=== PATIENT | female | born 1950 | race Caucasian/White ===

== ENCOUNTER 2022-08-22 11:03 | Inpatient (IN) ==
[2022-08-22 16:11] LABS: BASOPHILS % (AUTO) 0.7 % (0.2-1.0); EOSINOPHILS # (AUTO) 0.1 x10^3/uL (0.0-0.2); EOSINOPHILS % (AUTO) 0.9 % (0.9-2.9); HEMATOCRIT 33.3 % (36.0-47.0); HEMOGLOBIN 11.5 g/dL (12.0-16.0); LYMPHOCYTES # (AUTO) 1.2 X10^3/uL (1.3-2.9); LYMPHOCYTES % (AUTO) 16.2 % (21.0-51.0); MEAN CORPUSCULAR HEMOGLOBIN 40.5 pg (27.0-34.0); MEAN CORPUSCULAR HGB CONC 34.6 g/dL (33.0-35.0); MEAN CORPUSCULAR VOLUME 117.1 fL (80.0-100.0); MEAN PLATELET VOLUME 7.2 fL (7.4-11.0); MONOCYTES # (AUTO) 0.7 x10^3/uL (0.3-0.8); MONOCYTES % (AUTO) 10.3 % (0.0-13.0); NEUTROPHILS # (AUTO) 5.1 x10^3/uL (2.2-4.8); NEUTROPHILS % (AUTO) 71.9 % (42.0-75.0); PLATELET COUNT 343 X10^3/uL (150.0-450.0); RED BLOOD COUNT 2.84 X10^6/uL (3.5-5.4); RED CELL DISTRIBUTION WIDTH 16.3 % (11.6-16.5); WHITE BLOOD COUNT 7.1 X10^3/uL (3.6-10.0)
[2022-08-22] MEDS: LR 1,000 ML IV 1,000 ML IV SCH (16:16)
[2022-08-22 16:20] LABS: INR 0.92 (0.8-1.3)
[2022-08-22 16:24] LABS: ALANINE AMINOTRANSFERASE 24 Units/L (12-78); ALBUMIN 2.6 g/dL (3.4-5.0); ALKALINE PHOSPHATASE 151 Units/L (46-116); ASPARTATE AMINO TRANSFERASE 42 Units/L (15-37); BLOOD UREA NITROGEN 7 mg/dL (7-18); CARBON DIOXIDE 26.5 mmol/L (21-32); CHLORIDE 94 mmol/L (98-107); COR CA(FOR HYPOALB) 9.1 mg/dL (8.5-10.1); GLUCOSE 100 mg/dL (65-99); SODIUM 134 mmol/L (136-145); TOTAL PROTEIN 6.6 g/dL (6.4-8.2); eGFR NON BLACK RACES > 60 (>60)
[2022-08-22] MEDS ORDERED: HEPARIN SODIUM INJ 5000 UNITS IVP ONE ×2 (16:25→23:45)
[2022-08-22] MEDS ORDERED: POTASSIUM CHL 40 MEQ/NS 0.45% 500 ML IV PRN (16:29)
[2022-08-22] MEDS ORDERED: MICRO K EXTEN CAP 10 MEQ PO PRN (16:29)
[2022-08-22] MEDS ORDERED: KLOR-CON PO PRN (16:29)
[2022-08-22] MEDS ORDERED: K-DUR TAB 20 MEQ PO PRN (16:29)
[2022-08-22] MEDS ORDERED: K-RIDER 10 MEQ/NS 100 ML 10 MEQ/100 ML BAG IV PRN (16:29)
[2022-08-22] MEDS ORDERED: POTASSIUM CHLORIDE LIQ PO PRN (16:29)
[2022-08-22] MEDS ORDERED: POTASSIUM CHL 60 MEQ/NS 0.45% 500 ML IV PRN (16:29)
[2022-08-22] MEDS: HEPARIN SODIUM IN D5W 25,000 UNITS/500 ML BAG IV PRN (16:51)
[2022-08-22 16:57] LABS: PLATELET MORPHOLOGY COMMENT NORMAL (NORMAL)
[2022-08-22 16:58] LABS: STOMATOCYTES SLIGHT
[2022-08-22] MEDS: DILAUDID INJ IVP PRN (16:58)
[2022-08-22 17:33] VITALS: BMI 15.9
[2022-08-22] MEDS ORDERED: ZOFRAN INJ 4 MG VIAL ONE (17:45)
[2022-08-22] MEDS: ZOFRAN INJ 4 MG VIAL IVP PRN (17:55)
[2022-08-22] MEDS: MAGNESIUM SULFATE 1 GRAM/100 mL PREMIX 1 G/100 ML BAG IV PRN ×5 (18:19→23:32)
--- NOTE | 2022-08-22 19:19 | CT ---
HISTORYAbdominal pain with possible AORTOILIAC OCCLUSION, severe vascular diseaseSTUDYCTA AORTA WITH RUNOFFCOMPARISONNoneTECHNIQUEMultiple axial images of the abdomen and pelvis were obtained from the mesenteric vasculature to the plantar surface of the feet both prior to and after the administration of IV contrast timed for peak arterial enhancement. 3D reconstructions were performed and reviewed utilizing maximum intensity projection imaging. Dose reduction techniques including Automated Exposure Control (AEC) and adjustment of mA and kV were utilized.FINDINGSPrecontrast images demonstrate mild hypoventilatory changes in the lung bases. Diffuse low density throughout the liver consistent with advanced fatty infiltration. The aorta and branch vessels demonstrate extensive calcified atherosclerotic plaque. There is severe luminal narrowing of the infrarenal aorta with calcified plaque.Post-contrast images demonstrate minimal passage of contrast through this nearly occlusive plaque in the infrarenal aorta.Atrophy of the pancreas. Food material noted in the stomach. Normal spleen contours.Some metallic streak artifact from spinal hardware and left hip hardware. Remote traumatic remodeling left inferior pubic ramus. The bowel is nonobstructed. No bowel wall thickening.The celiac axis is patent. The superior mesenteric artery is patent. The OPAL is patent. There are some prominent arterial collaterals in the lower abdomen.Lower extremity runoff: Precontrast images demonstrate moderate multifocal calcified plaque in the bilateral arterial great vessels of the lower extremities.Post-contrast images demonstrate multifocal ratty disease in the right superficial femoral artery. There is flow visible in the right trifurcation with broken to no flow at the ankle in the posterior tibial and peroneal branches.The left lower extremity demonstrates multifocal ratty disease in the superficial femoral and popliteal artery. Flow is mostly unseen in the posterior tibial and broken flow in the anterior tibial with fairly good flow in the peroneal branch.Three-level posterior screw and joi fusion L4 through S1. Lucency around the L4 pedicle screws suggest possible hardware loosening. There is grade 1 anterolisthesis of L4 with respect to L5. No suspicious bony lesion.IMPRESSIONCritical stenosis involving the infrarenal abdominal aorta secondary to predominately calcified thrombus.Multifocal long segment ratty disease in the bilateral superficial femoral arteries with extremely poor/broken flow in the bilateral calf trifurcations, left greater than right.Additional findings as described.Electronically signed by: Barry Lau (Aug 22, 2022 19:17:54)
[2022-08-22] MEDS ORDERED: TOPROL XL PO ONE (20:00)
[2022-08-22] MEDS: NICOTINE PATCH TD SCH (20:07)
[2022-08-22] MEDS: PERCOCET TAB 5/325 MG PO PRN (21:21)
[2022-08-22] MEDS: CHECK PATCH XX SCH (21:25)
--- NOTE | 2022-08-22 21:43 | NOTE.SOAP ---
Soap Note Note for Day of Date of Exam: 08/22/22 Subjective Data Subjective Data: Admitted from the office today with severe rest pain of both or extremities and evidence of an occlued aorta . CT angiogram shows a severely stenotic infrarenal aortic with decent iliac run off and scattered significant disease of both lower extremities below the inguinal ligament. K+ is 3.0 and being replaced. Patient very hypertensive as she has not been taking her antihypertensives for many months. Objective Data Pulse Rate: 115 Respiratory Rate: 22 Blood Pressure: 183/95 O2 Sat by Pulse Oximetry: 95 Objective Data: Cyanotic feet b/l, both cool , no palapble femoral pulses either side . Assessment Assessment: Aorto-iliac occlusive disease with severe bilateral lower extremity limb threatening ischemia. Plan Plan: Lexiscan stress test tomorrow. Mono review CTA and decide on stent graft vs open aorto-bifemoral bypass.
[2022-08-23] MEDS: MAGNESIUM SULFATE 1 GRAM/100 mL PREMIX 1 G/100 ML BAG IV PRN (00:35)
[2022-08-23] MEDS: PERCOCET TAB 5/325 MG PO PRN ×2 (02:38→16:44)
[2022-08-23] MEDS: LR 1,000 ML IV 1,000 ML IV SCH ×3 (05:01→21:50)
--- NOTE | 2022-08-23 05:07 | RAD ---
HISTORYPRE OP-INFRARENAL AORTIC STENOSISSTUDYCHEST, 1 VIEWCOMPARISONNoneFINDINGSThe trachea is midline. The cardiac silhouette is unremarkable . The lungs are clear without focal infiltrate or effusion. The bony thorax is unremarkable.IMPRESSIONNo acute cardiopulmonary disease.Electronically signed by: YARI MUNOZ (Aug 23, 2022 05:05:39)
[2022-08-23 05:40] LABS: BASOPHILS % (AUTO) 0.6 % (0.2-1.0); EOSINOPHILS # (AUTO) 0.1 x10^3/uL (0.0-0.2); EOSINOPHILS % (AUTO) 1.2 % (0.9-2.9); HEMATOCRIT 30.7 % (36.0-47.0); HEMOGLOBIN 10.7 g/dL (12.0-16.0); LYMPHOCYTES # (AUTO) 0.7 X10^3/uL (1.3-2.9); LYMPHOCYTES % (AUTO) 8.9 % (21.0-51.0); MEAN CORPUSCULAR HEMOGLOBIN 40.8 pg (27.0-34.0); MEAN CORPUSCULAR HGB CONC 34.9 g/dL (33.0-35.0); MEAN CORPUSCULAR VOLUME 116.7 fL (80.0-100.0); MEAN PLATELET VOLUME 8.1 fL (7.4-11.0); MONOCYTES # (AUTO) 0.8 x10^3/uL (0.3-0.8); MONOCYTES % (AUTO) 11.1 % (0.0-13.0); NEUTROPHILS # (AUTO) 5.9 x10^3/uL (2.2-4.8); NEUTROPHILS % (AUTO) 78.2 % (42.0-75.0); PLATELET COUNT 313 X10^3/uL (150.0-450.0); RED BLOOD COUNT 2.63 X10^6/uL (3.5-5.4); RED CELL DISTRIBUTION WIDTH 16.3 % (11.6-16.5); WHITE BLOOD COUNT 7.6 X10^3/uL (3.6-10.0)
[2022-08-23 05:47] LABS: ALANINE AMINOTRANSFERASE 21 Units/L (12-78); ALBUMIN 2.2 g/dL (3.4-5.0); ALKALINE PHOSPHATASE 128 Units/L (46-116); ASPARTATE AMINO TRANSFERASE 31 Units/L (15-37); BLOOD UREA NITROGEN 5 mg/dL (7-18); CALCIUM 7.7 mg/dL (8.5-10.1); CARBON DIOXIDE 30.4 mmol/L (21-32); CHLORIDE 97 mmol/L (98-107); COR CA(FOR HYPOALB) 9.1 mg/dL (8.5-10.1); CREATININE 0.65 mg/dL (0.55-1.02); GLUCOSE 96 mg/dL (65-99); POTASSIUM 4.9 mmol/L (3.5-5.1); SODIUM 133 mmol/L (136-145); TOTAL PROTEIN 5.7 g/dL (6.4-8.2); eGFR NON BLACK RACES > 60 (>60)
[2022-08-23 05:58] LABS: PLATELET MORPHOLOGY COMMENT NORMAL (NORMAL)
[2022-08-23 05:59] LABS: STOMATOCYTES PRESENT
[2022-08-23] MEDS ORDERED: HEPARIN SODIUM INJ 5000 UNITS IVP ONE ×2 (06:55→13:43)
[2022-08-23] MEDS: NICOTINE PATCH TD SCH ×2 (07:31→08:22)
[2022-08-23] MEDS: CHECK PATCH XX SCH ×2 (08:20→21:26)
[2022-08-23] MEDS: FOLIC ACID TAB 1 MG PO SCH (08:29)
[2022-08-23] MEDS: TOPROL XL PO SCH (08:29)
[2022-08-23] MEDS: DILAUDID INJ IVP PRN ×2 (08:30→21:48)
[2022-08-23] MEDS: ZOFRAN INJ 4 MG VIAL IVP PRN (08:50)
[2022-08-23] MEDS: COZAAR PO SCH ×3 (14:13→17:17)
[2022-08-23] MEDS ORDERED: LEXISCAN IV ONE (14:48)
[2022-08-23] MEDS ORDERED: ATIVAN TAB 1 MG PO ONE (17:36)
[2022-08-23] MEDS ORDERED: ATIVAN TAB 1 MG PO PRN (17:38)
[2022-08-23] MEDS: ATIVAN TAB 1 MG PO SCH ×2 (17:44→23:15)
[2022-08-24] MEDS: HEPARIN SODIUM IN D5W 25,000 UNITS/500 ML BAG IV PRN (00:31)
[2022-08-24] MEDS ORDERED: ATIVAN INJ 2 MG VIAL IVP ONE (01:29)
[2022-08-24] MEDS: NS 1,000 ML IV 1,000 ML with MAGNESIUM SULFATE 50% INJ VIAL 1 G, MVI INJ (ADULT) 10 ML IV SCH ×3 (02:05)
[2022-08-24] MEDS: LR 1,000 ML IV 1,000 ML IV SCH (05:24)
[2022-08-24] MEDS: ATIVAN TAB 1 MG PO SCH ×3 (07:05→18:08)
[2022-08-24] MEDS: FOLIC ACID TAB 1 MG PO SCH (08:27)
[2022-08-24] MEDS: TOPROL XL PO SCH (08:28)
[2022-08-24] MEDS: COZAAR PO SCH (08:29)
[2022-08-24] MEDS: NICOTINE PATCH TD SCH (08:30)
[2022-08-24] MEDS: CHECK PATCH XX SCH ×2 (09:00→20:10)
[2022-08-24] MEDS: ZOFRAN INJ 4 MG VIAL IVP PRN (14:00)
[2022-08-24] MEDS: PERCOCET TAB 5/325 MG PO PRN ×2 (14:01→20:58)
[2022-08-24] MEDS: DILAUDID INJ IVP PRN (18:21)
--- NOTE | 2022-08-24 21:51 | NOTE.SOAP ---
Soap Note Note for Day of Date of Exam: 08/23/22 Subjective Data Subjective Data: Patient stable and had Lexiscan stress test. History of daily alcohol intake of at least a 1/2 pint daily discovered. Patient started on around the clock PO/IV Ativan Objective Data Temperature: 97.7 F Pulse Rate: 75 Respiratory Rate: 20 Blood Pressure: 122/61 O2 Sat by Pulse Oximetry: 96 Objective Data: No changes. Patient and I discussed aorto- bifemoral bypass as she is not a g ood candidate for stent graft repair of the aortic occlusion. We discussed risks of bleeding , infection and . I explained that I have done over 100 aortic open operations and my risk of is an elective situation such as this is 1 %. I explained That tis woilf be the first such case i will have done at this hospital and if she wants me to transfer I will . She wants me to proceed. Assessment Assessment: Aortic-occlusive disease Plan Plan: Aorto- bifemoral bypass.
--- NOTE | 2022-08-24 22:05 | NOTE.SOAP ---
Soap Note Note for Day of Date of Exam: 08/24/22 Subjective Data Subjective Data: Patient became confused during the night and I am concerned this represents DT's even though we have prophylactically treated her . Surgery was cancelled . She is doing better now , not confused. Objective Data Temperature: 97.7 F Pulse Rate: 78 Respiratory Rate: 18 Blood Pressure: 122/61 O2 Sat by Pulse Oximetry: 98 Objective Data: On heparin drip , . Both feet warmer . PTT=82.3 Assessment Assessment: Aorto-iliac occlusive disease and critical ischemia of both legs. Plan Plan: Observe and will re-schedule for next week. Make sure DT's are resolved.
[2022-08-24] MEDS: NORMODYNE INJ 20 MG VIAL IVP SCH (22:32)
[2022-08-25] MEDS: ATIVAN TAB 1 MG PO SCH ×5 (00:45→17:36)
[2022-08-25] MEDS: NS 1,000 ML IV 1,000 ML with MAGNESIUM SULFATE 50% INJ VIAL 1 G, MVI INJ (ADULT) 10 ML IV SCH ×6 (02:00→05:35)
[2022-08-25] MEDS: NORMODYNE INJ 20 MG VIAL IVP SCH ×4 (05:15→23:23)
[2022-08-25] MEDS: PERCOCET TAB 5/325 MG PO PRN ×3 (07:35→22:09)
[2022-08-25] MEDS: TOPROL XL PO SCH (09:19)
[2022-08-25] MEDS: NICOTINE PATCH TD SCH (09:19)
[2022-08-25] MEDS: FOLIC ACID TAB 1 MG PO SCH (09:20)
[2022-08-25] MEDS: CHECK PATCH XX SCH ×2 (09:20→21:34)
[2022-08-25] MEDS: COZAAR PO SCH (09:21)
[2022-08-25] MEDS: HEPARIN SODIUM IN D5W 25,000 UNITS/500 ML BAG IV PRN (09:48)
--- NOTE | 2022-08-25 23:47 | NOTE.SOAP ---
Soap Note Note for Day of Date of Exam: 08/25/22 Subjective Data Subjective Data: Alert and oriented times three. Blood pressure under much better control finanally. Objective Data Temperature: 98 F Pulse Rate: 78 Respiratory Rate: 20 Blood Pressure: 116/57 O2 Sat by Pulse Oximetry: 100 Objective Data: Feet cool but cyanosis resolved . PTT 108 Assessment Assessment: Occluded aorta, DT's appear resolved Plan Plan: Will adjust heparin according to normogram, Reschedule for aorto- bifemoral bypass.
[2022-08-26] MEDS: ATIVAN TAB 1 MG PO SCH ×5 (00:13→18:10)
[2022-08-26] MEDS: NS 1,000 ML IV 1,000 ML with MAGNESIUM SULFATE 50% INJ VIAL 1 G, MVI INJ (ADULT) 10 ML IV SCH ×3 (03:41)
[2022-08-26] MEDS: PERCOCET TAB 5/325 MG PO PRN ×3 (04:07→21:45)
[2022-08-26] MEDS: NORMODYNE INJ 20 MG VIAL IVP SCH ×3 (05:13→18:01)
[2022-08-26] MEDS: COZAAR PO SCH (08:32)
[2022-08-26] MEDS: FOLIC ACID TAB 1 MG PO SCH (08:33)
[2022-08-26] MEDS: TOPROL XL PO SCH (08:33)
[2022-08-26] MEDS: NICOTINE PATCH TD SCH (08:33)
[2022-08-26] MEDS: CHECK PATCH XX SCH ×2 (09:57→21:45)
[2022-08-26] MEDS: HEPARIN SODIUM IN D5W 25,000 UNITS/500 ML BAG IV PRN (12:40)
[2022-08-26] MEDS ORDERED: NORMODYNE INJ 20 MG VIAL IVP PRN (22:20)
--- NOTE | 2022-08-26 23:38 | NOTE.SOAP ---
Soap Note Note for Day of Date of Exam: 08/26/22 Subjective Data Subjective Data: Patient doing well. DT's were mild . Only confusion the first night . On heparin drip Objective Data Temperature: 98.6 F Pulse Rate: 73 Respiratory Rate: 14 Blood Pressure: 170/81 O2 Sat by Pulse Oximetry: 97 Objective Data: Cool feet b/l, Cyanosis improved Assessment Assessment: Aortic occlusive disease Plan Plan: Will reconsider aorto-bifemoral bypass tomorrow. All risks and benefits discussed including possible , limb loss, cardiac complications and possible long term care pharmacist ventilation. She agrees to proceed. She and her both want me to proceed .
[2022-08-27] MEDS: ATIVAN TAB 1 MG PO SCH ×3 (02:05→20:38)
[2022-08-27] MEDS: DILAUDID INJ IVP PRN ×2 (05:14→10:01)
[2022-08-27 05:20] LABS: BASOPHILS # (AUTO) 0.1 X10^3/uL (0.0-0.1); BASOPHILS % (AUTO) 0.8 % (0.2-1.0); EOSINOPHILS # (AUTO) 0.1 x10^3/uL (0.0-0.2); EOSINOPHILS % (AUTO) 2.2 % (0.9-2.9); HEMATOCRIT 30.3 % (36.0-47.0); HEMOGLOBIN 10.6 g/dL (12.0-16.0); LYMPHOCYTES # (AUTO) 1.3 X10^3/uL (1.3-2.9); LYMPHOCYTES % (AUTO) 19.2 % (21.0-51.0); MEAN CORPUSCULAR HEMOGLOBIN 41.1 pg (27.0-34.0); MEAN CORPUSCULAR VOLUME 117.3 fL (80.0-100.0); MEAN PLATELET VOLUME 7.6 fL (7.4-11.0); MONOCYTES % (AUTO) 15.5 % (0.0-13.0); NEUTROPHILS # (AUTO) 4.1 x10^3/uL (2.2-4.8); NEUTROPHILS % (AUTO) 62.3 % (42.0-75.0); PLATELET COUNT 335 X10^3/uL (150.0-450.0); RED BLOOD COUNT 2.58 X10^6/uL (3.5-5.4); RED CELL DISTRIBUTION WIDTH 16.7 % (11.6-16.5); WHITE BLOOD COUNT 6.5 X10^3/uL (3.6-10.0)
[2022-08-27 05:30] LABS: BLOOD UREA NITROGEN 5 mg/dL (7-18); CALCIUM 8.1 mg/dL (8.5-10.1); CARBON DIOXIDE 26.7 mmol/L (21-32); CHLORIDE 99 mmol/L (98-107); GLUCOSE 86 mg/dL (65-99); POTASSIUM 4.3 mmol/L (3.5-5.1); SODIUM 133 mmol/L (136-145); eGFR NON BLACK RACES > 60 (>60)
[2022-08-27 05:44] LABS: ANISOCYTOSIS SLIGHT; PLATELET MORPHOLOGY COMMENT NORMAL (NORMAL); STOMATOCYTES SLIGHT; TARGET CELLS SLIGHT
[2022-08-27] MEDS: FOLIC ACID TAB 1 MG PO SCH (09:37)
[2022-08-27] MEDS: TOPROL XL PO SCH (10:00)
[2022-08-27] MEDS: NICOTINE PATCH TD SCH (10:01)
[2022-08-27] MEDS: COZAAR PO SCH (10:01)
[2022-08-27] MEDS: CHECK PATCH XX SCH ×2 (10:02→22:00)
[2022-08-27] MEDS ORDERED: NS 100 ML IV 100 ML ONE (11:52)
[2022-08-27] MEDS ORDERED: ANCEF VIAL 1 GRAM ONE (11:52)
[2022-08-27] MEDS ORDERED: LR 1,000 ML IV 1,000 ML IV ONE (11:54)
[2022-08-27] MEDS ORDERED: CARDENE IV PREMIX* 40 MG/200 ML 40 MG/200 ML PIGGYBACK IV PRN (12:17)
[2022-08-27] MEDS ORDERED: NEO-SYNEPHRINE INJ 30 MG in NS 500 ML IV 500 ML IV PRN (12:19)
[2022-08-27] MEDS ORDERED: MARCAINE/EPINEPHRINE ONE (12:28)
[2022-08-27] MEDS ORDERED: NS 500 ML IV 500 ML IV ONE ×3 (12:29→13:01)
[2022-08-27] MEDS ORDERED: XYLOCAINE 2 % (PLAIN) ONE (12:30)
[2022-08-27] MEDS ORDERED: VERSED ONE ×4 (12:30→19:00)
[2022-08-27] MEDS ORDERED: DIPRIVAN PREMIX 1 GRAM IV 1,000 MG/100 ML VIAL IV PRN (12:39)
[2022-08-27] MEDS ORDERED: PRECEDEX 400 MCG/100 ML *PREMIX 400 MCG/100 ML INFUS..BTL IV PRN (12:39)
[2022-08-27] MEDS ORDERED: FENTANYL VIAL INJ 250 mcg ONE (13:00)
[2022-08-27] MEDS ORDERED: AMIDATE INJ 40 MG VIAL ONE (13:05)
[2022-08-27] MEDS ORDERED: ZEMURON 100 MG VIAL ONE (13:08)
[2022-08-27] MEDS ORDERED: NS 1,000 ML IV 1,000 ML ONE ×4 (14:34→22:31)
[2022-08-27] MEDS ORDERED: HEPARIN SODIUM INJ 5000 UNITS ONE (14:56)
[2022-08-27 14:57] LABS: ABG ALLEN TEST POS; ABG BASE EXCESS -1.9 mmol/L (-2.0-2.0); ABG HCO3 24.3 mmol/L (22-26)
[2022-08-27] MEDS ORDERED: NEO-SYNEPHRINE INJ ONE (15:44)
[2022-08-27 15:50] LABS: HEMATOCRIT 24.3 % (36.0-47.0)
[2022-08-27 16:00] LABS: HEMOGLOBIN 8.5 g/dL (12.0-16.0)
[2022-08-27] MEDS: LEVOPHED 8 MG/250 ML IV *PREMIX 8 MG/250 ML PLAST..BAG IV PRN ×2 (17:20→21:13)
[2022-08-27] MEDS ORDERED: BRIDION ONE (17:27)
[2022-08-27] MEDS ORDERED: FENTANYL VIAL INJ 100 mcg ONE (17:44)
--- NOTE | 2022-08-27 17:52 | OR.IMMED ---
IMMEDIATE POST-OP NOTE Immediate Post-Op Note Pre-Op Diagnosis: infra renal aorto iliac occlusive disease Post-Op Diagnosis: same Procedure: aorto-bifemoral bypass and , endarterectomy right common femoral artery Description of Procedure: see operative summary Surgeon/Negative Developer: Tien Findings: Completely occluded infra renal aorta with severe b/l iliac artery occlusion Estimated Blood Loss: 500 cc Complications: none Progress Notes: To ICU for recovery, still intubated, stable, on low dose Levophed drip 0.5 mcg/kg / min
[2022-08-27] MEDS ORDERED: LOPRESSOR INJ 5 MG AMP IVP PRN (17:53)
[2022-08-27] MEDS ORDERED: LEVOPHED 8 MG/250 ML IV *PREMIX 8 MG/250 ML PLAST..BAG IV PRN (17:56)
[2022-08-27] MEDS: LR 1,000 ML IV 1,000 ML IV SCH (18:17)
[2022-08-27 18:43] LABS: HEMOGLOBIN 12.8 g/dL (12.0-16.0); MEAN PLATELET VOLUME 7.6 fL (7.4-11.0); NEUTROPHILS # (AUTO) 3.2 x10^3/uL (2.2-4.8)
[2022-08-27 18:46] LABS: BLOOD UREA NITROGEN 7 mg/dL (7-18); CARBON DIOXIDE 15.7 mmol/L (21-32); CHLORIDE 106 mmol/L (98-107); COR NA(FOR HYPERGLY) 135 mmol/L (136-145); CREATININE 0.73 mg/dL (0.55-1.02); GLUCOSE 156 mg/dL (65-99); POTASSIUM 3.8 mmol/L (3.5-5.1); SODIUM 134 mmol/L (136-145); eGFR NON BLACK RACES > 60 (>60)
[2022-08-27 18:47] LABS: BASOPHILS % (AUTO) 0.3 % (0.2-1.0); EOSINOPHILS # (AUTO) 0.1 x10^3/uL (0.0-0.2); EOSINOPHILS % (AUTO) 1.4 % (0.9-2.9); HEMATOCRIT 36.9 % (36.0-47.0); LYMPHOCYTES # (AUTO) 0.9 X10^3/uL (1.3-2.9); MEAN CORPUSCULAR HEMOGLOBIN 36.7 pg (27.0-34.0); MEAN CORPUSCULAR HGB CONC 34.5 g/dL (33.0-35.0); MEAN CORPUSCULAR VOLUME 106.3 fL (80.0-100.0); MONOCYTES # (AUTO) 0.2 x10^3/uL (0.3-0.8); NEUTROPHILS % (AUTO) 73.3 % (42.0-75.0); PLATELET COUNT 314 X10^3/uL (150.0-450.0); RED BLOOD COUNT 3.47 X10^6/uL (3.5-5.4); RED CELL DISTRIBUTION WIDTH 25.4 % (11.6-16.5); WHITE BLOOD COUNT 4.4 X10^3/uL (3.6-10.0)
[2022-08-27] MEDS: ZOFRAN INJ 4 MG VIAL IVP PRN (18:54)
[2022-08-27] MEDS ORDERED: NS 1,000 ML IV 1,000 ML IV ONE ×3 (18:58→22:43)
[2022-08-27] MEDS ORDERED: VERSED IVP ONE (18:59)
[2022-08-27 19:09] LABS: PLATELET MORPHOLOGY COMMENT NORMAL (NORMAL)
[2022-08-27 19:10] LABS: ANISOCYTOSIS 3+
[2022-08-27 19:11] LABS: TARGET CELLS PRESENT
[2022-08-27 19:13] LABS: BURR CELLS PRESENT
[2022-08-27] MEDS: VERSED 100 MG in NS 100 ML IV 80 ML IV PRN (19:13)
[2022-08-27 19:15] LABS: STOMATOCYTES PRESENT
--- NOTE | 2022-08-27 19:55 | RAD ---
EXAM: CHEST X-RAYHISTORY: Postop. Intubation.TECHNIQUE: AP CXR dated August 27, 2022 at 6:14 PM.COMPARISON: CXR dated August 23, 2022.FINDINGS:There is aortic atherosclerosis. The heart size and mediastinum are otherwise within normal limits. There is lung parenchymal hyperinflation and hyperlucency in keeping with COPD/emphysema. There is no acute parenchymal infiltrate, pleural effusion, or pneumothorax seen. The visualized bony structures are within normal limits.IMPRESSION:1. No evidence for acute cardiopulmonary disease seen.2. COPD/emphysema.3. No significant interval change seen.Electronically signed by: Maurice Hawley (Aug 27, 2022 19:54:16)
[2022-08-27] MEDS ORDERED: DOPAMINE IV PREMIX 400 MG/250 ML 400 MG/250 ML BAG IV ONE (22:38)
[2022-08-27] MEDS: DOPAMINE IV PREMIX 400 MG/250 ML 400 MG/250 ML BAG IV PRN (23:34)
[2022-08-28] MEDS: LR 1,000 ML IV 1,000 ML IV SCH ×3 (02:01→19:00)
[2022-08-28] MEDS: LEVOPHED 8 MG/250 ML IV *PREMIX 8 MG/250 ML PLAST..BAG IV PRN ×4 (03:00→21:08)
[2022-08-28] MEDS: DILAUDID INJ IVP PRN (04:45)
[2022-08-28 04:57] LABS: BLOOD UREA NITROGEN 8 mg/dL (7-18); CALCIUM 8.1 mg/dL (8.5-10.1); CARBON DIOXIDE 17.9 mmol/L (21-32); CHLORIDE 104 mmol/L (98-107); COR NA(FOR HYPERGLY) 137 mmol/L (136-145); GLUCOSE 117 mg/dL (65-99); POTASSIUM 3.9 mmol/L (3.5-5.1); SODIUM 137 mmol/L (136-145); eGFR NON BLACK RACES 58 (>60)
[2022-08-28 05:08] LABS: BASOPHILS # (AUTO) 0.1 X10^3/uL (0.0-0.1); BASOPHILS % (AUTO) 0.3 % (0.2-1.0); EOSINOPHILS % (AUTO) 0.1 % (0.9-2.9); HEMATOCRIT 41.1 % (36.0-47.0); LYMPHOCYTES # (AUTO) 0.8 X10^3/uL (1.3-2.9); LYMPHOCYTES % (AUTO) 4.6 % (21.0-51.0); MEAN CORPUSCULAR HEMOGLOBIN 36.7 pg (27.0-34.0); MEAN CORPUSCULAR HGB CONC 34.1 g/dL (33.0-35.0); MEAN CORPUSCULAR VOLUME 107.6 fL (80.0-100.0); MEAN PLATELET VOLUME 9.2 fL (7.4-11.0); MONOCYTES # (AUTO) 2.6 x10^3/uL (0.3-0.8); MONOCYTES % (AUTO) 14.6 % (0.0-13.0); NEUTROPHILS # (AUTO) 14.2 x10^3/uL (2.2-4.8); NEUTROPHILS % (AUTO) 80.4 % (42.0-75.0); PLATELET COUNT 217 X10^3/uL (150.0-450.0); RED BLOOD COUNT 3.82 X10^6/uL (3.5-5.4); RED CELL DISTRIBUTION WIDTH 26.8 % (11.6-16.5); WHITE BLOOD COUNT 17.7 X10^3/uL (3.6-10.0)
[2022-08-28 05:20] LABS: ANISOCYTOSIS 3+; GIANT PLATELET FEW; PLATELET MORPHOLOGY COMMENT ABNORMAL (NORMAL)
[2022-08-28 05:21] LABS: BURR CELLS 1+; SCHISTOCYTES SLIGHT; TARGET CELLS SLIGHT
--- NOTE | 2022-08-28 05:28 | EKG ---
Test Reason : elevated HR Blood Pressure : */* mmHG Vent. Rate : 148 BPM Atrial Rate : 148 BPM P-R Int : 126 ms QRS Dur : 70 ms QT Int : 278 ms P-R-T Axes : 72 46 89 degrees QTc Int : 436 ms Sinus tachycardia Low voltage QRS Nonspecific ST and T wave abnormality Abnormal ECG No previous ECGs available Confirmed by Momo Haddad ([id number]) on 08/28/2022 5:41:04 PM Referred By: Confirmed By: Momo Haddad
[2022-08-28] MEDS: VERSED 100 MG in NS 100 ML IV 80 ML IV PRN (05:30)
[2022-08-28] MEDS ORDERED: LASIX IVP ONE ×2 (05:35→22:28)
[2022-08-28] MEDS ORDERED: NS 1,000 ML IV 1,000 ML IV ONE ×5 (05:36→22:26)
[2022-08-28] MEDS ORDERED: LASIX ONE (05:37)
[2022-08-28] MEDS ORDERED: NS 1,000 ML IV 1,000 ML ONE (05:37)
[2022-08-28 07:25] LABS: ABG BASE EXCESS -12.8 mmol/L (-2.0-2.0)
[2022-08-28 07:26] LABS: ABG HCO3 11.3 mmol/L (22-26)
[2022-08-28] MEDS ORDERED: SODIUM BICARBONATE 8.4% INJ ADULT IVP ONE ×2 (07:54→13:56)
[2022-08-28] MEDS: LOVENOX INJ 40 MG SYR SC SCH (08:28)
[2022-08-28] MEDS: NICOTINE PATCH TD SCH (08:29)
[2022-08-28] MEDS: CHECK PATCH XX SCH ×2 (08:45→21:20)
[2022-08-28] MEDS ORDERED: DUKE'S Magic Mouthwash (nyst/dex/ben/doxyc) MT PRN (09:23)
[2022-08-28] MEDS: LACRI-LUBE S.O.P. AFFEYE SCH ×2 (10:36→21:21)
[2022-08-28] MEDS ORDERED: ROMAZICON INJ 1 MG IVP ONE (10:42)
[2022-08-28 13:45] LABS: ABG BASE EXCESS -9.7 mmol/L (-2.0-2.0)
[2022-08-28 13:46] LABS: ABG HCO3 13.6 mmol/L (22-26)
--- NOTE | 2022-08-28 15:28 | PCM.PROG ---
Progress Note - Past Medical Family Social History Allergies: Allergies No Known Allergies Allergy (Verified 08/22/22 15:35) - Vital Signs and I&O's Vital Signs: Temperature 98.7 F Temperature 99.3 F Pulse Rate 143 Pulse Rate 141 Pulse Rate 142 Pulse Rate 140 Pulse Rate 140 Pulse Rate 137 Pulse Rate 139 Pulse Rate 141 Pulse Rate 141 Pulse Rate 141 Pulse Rate 140 Pulse Rate 140 Pulse Rate 139 Pulse Rate 137 Pulse Rate 137 Pulse Rate 137 Pulse Rate 138 Pulse Rate 138 Pulse Rate 138 Pulse Rate 137 Pulse Rate 117 Pulse Rate 112 Pulse Rate 138 Respiratory Rate 38 Respiratory Rate 38 Respiratory Rate 33 Respiratory Rate 31 Respiratory Rate 31 Respiratory Rate 29 Respiratory Rate 28 Respiratory Rate 26 Respiratory Rate 30 Respiratory Rate 32 Respiratory Rate 32 Respiratory Rate 26 Respiratory Rate 26 Respiratory Rate 25 Respiratory Rate 25 Respiratory Rate 26 Respiratory Rate 25 Respiratory Rate 27 Respiratory Rate 24 Respiratory Rate 25 Respiratory Rate 23 Respiratory Rate 25 Respiratory Rate 27 Respiratory Rate 27 Respiratory Rate 24 Respiratory Rate 22 Blood Pressure 130/58 Blood Pressure 87/58 Blood Pressure 92/61 Blood Pressure 106/73 Blood Pressure 113/58 Blood Pressure 91/48 Blood Pressure 92/63 O2 Sat by Pulse Oximetry 100 O2 Sat by Pulse Oximetry 100 O2 Sat by Pulse Oximetry 100 O2 Sat by Pulse Oximetry 100 O2 Sat by Pulse Oximetry 100 O2 Sat by Pulse Oximetry 100 O2 Sat by Pulse Oximetry 100 O2 Sat by Pulse Oximetry 100 O2 Sat by Pulse Oximetry 100 O2 Sat by Pulse Oximetry 99 O2 Sat by Pulse Oximetry 100 O2 Sat by Pulse Oximetry 100 O2 Sat by Pulse Oximetry 100 O2 Sat by Pulse Oximetry 100 O2 Sat by Pulse Oximetry 100 O2 Sat by Pulse Oximetry 100 O2 Sat by Pulse Oximetry 100 O2 Sat by Pulse Oximetry 100 O2 Sat by Pulse Oximetry 100 O2 Sat by Pulse Oximetry 100 O2 Sat by Pulse Oximetry 100 O2 Sat by Pulse Oximetry 99 O2 Sat by Pulse Oximetry 100 08/28/22 12:00 08/28/22 12:00 08/28/22 12:05 Temperature 98.7 F Pulse Rate 138 H 138 H Pulse Strength Normal Pulse Assessment Method Monitor Respiratory Rate 23 25 H 24 Respiratory Depth Normal Respiratory Effort Mechanically Ventilated Mechanically Ventilated Respiratory Pattern Normal O2 Sat by Pulse Oximetry 100 100 Oxygen Delivery Method Mechanical Ventilator FIO2% 35 35 Blood Pressure 92/61 Blood Pressure Mean 08/28/22 12:10 08/28/22 12:15 08/28/22 12:20 Temperature Pulse Rate 138 H 137 H 137 H Pulse Strength Pulse Assessment Method Respiratory Rate 27 H 25 H 26 H Respiratory Depth Respiratory Effort Respiratory Pattern O2 Sat by Pulse Oximetry 100 100 100 Oxygen Delivery Method FIO2% Blood Pressure Blood Pressure Mean 08/28/22 12:25 08/28/22 12:30 08/28/22 12:35 Temperature Pulse Rate 137 H 139 H 140 H Pulse Strength Pulse Assessment Method Respiratory Rate 25 H 25 H 26 H Respiratory Depth Respiratory Effort Respiratory Pattern O2 Sat by Pulse Oximetry 100 100 100 Oxygen Delivery Method FIO2% Blood Pressure Blood Pressure Mean 08/28/22 12:40 08/28/22 12:45 08/28/22 12:50 Temperature Pulse Rate 140 H 141 H 141 H Pulse Strength Pulse Assessment Method Respiratory Rate 26 H 32 H 32 H Respiratory Depth Respiratory Effort Respiratory Pattern O2 Sat by Pulse Oximetry 100 99 100 Oxygen Delivery Method FIO2% Blood Pressure Blood Pressure Mean 08/28/22 12:55 08/28/22 13:00 08/28/22 13:03 Temperature Pulse Rate 141 H 139 H 137 H Pulse Strength Pulse Assessment Method Respiratory Rate 30 H 26 H 28 H Respiratory Depth Respiratory Effort Respiratory Pattern O2 Sat by Pulse Oximetry 100 100 100 Oxygen Delivery Method FIO2% Blood Pressure Blood Pressure Mean 08/28/22 13:03 08/28/22 13:05 08/28/22 13:10 Temperature Pulse Rate 140 H 140 H Pulse Strength Pulse Assessment Method Respiratory Rate 29 H 31 H Respiratory Depth Respiratory Effort Respiratory Pattern O2 Sat by Pulse Oximetry 100 100 Oxygen Delivery Method FIO2% Blood Pressure 87/58 Blood Pressure Mean 68 08/28/22 13:15 08/28/22 13:20 08/28/22 14:00 Temperature Pulse Rate 142 H 141 H Pulse Strength Pulse Assessment Method Respiratory Rate 31 H 33 H Respiratory Depth Respiratory Effort Respiratory Pattern O2 Sat by Pulse Oximetry 100 100 Oxygen Delivery Method FIO2% 35 Blood Pressure Blood Pressure Mean 08/28/22 14:00 08/28/22 14:00 Temperature Pulse Rate 143 H Pulse Strength Pulse Assessment Method Respiratory Rate 38 H 38 H Respiratory Depth Respiratory Effort Mechanically Ventilated Respiratory Pattern O2 Sat by Pulse Oximetry 100 Oxygen Delivery Method Mechanical Ventilator FIO2% 35 Blood Pressure 130/58 Blood Pressure Mean Intake and Output: Intake & Output 08/25/22 08/26/22 08/27/22 08/28/22 23:59 23:59 23:59 23:59 Intake Total 2732 / 2732 1890 / 1890 8540.00 / 8540.00 6409 / 6409 Output Total 2350 / 2350 225 / 225 Balance 2731 / 2731 1889 / 0 6190.00 / 6190.00 6184 / 6184 - Physical Exam Speech Pattern: Artificially Ventilated - Laboratory and Diagnostics Result Diagrams: 08/28/22 04:05 08/28/22 04:05 Labs: Laboratory WBC 17.7 X10^3/uL (3.6-10.0) H D 08/28/22 04:05 RBC 3.82 X10^6/uL (3.5-5.4) 08/28/22 04:05 Hgb 14.0 g/dL (12.0-16.0) 08/28/22 04:05 Hct 41.1 % (36.0-47.0) 08/28/22 04:05 MCV 107.6 fL (80.0-100.0) H 08/28/22 04:05 MCH 36.7 pg (27.0-34.0) H 08/28/22 04:05 MCHC 34.1 g/dL (33.0-35.0) 08/28/22 04:05 RDW 26.8 % (11.6-16.5) H 08/28/22 04:05 Plt Count 217 X10^3/uL (150.0-450.0) 08/28/22 04:05 Plt Count Comment Adequate (ADEQUATE) 08/28/22 04:05 MPV 9.2 fL (7.4-11.0) 08/28/22 04:05 Neut % (Auto) 80.4 % (42.0-75.0) H 08/28/22 04:05 Lymph % (Auto) 4.6 % (21.0-51.0) L 08/28/22 04:05 [place] % (Auto) 14.6 % (0.0-13.0) H 08/28/22 04:05 Eos % (Auto) 0.1 % (0.9-2.9) L 08/28/22 04:05 Baso % (Auto) 0.3 % (0.2-1.0) 08/28/22 04:05 Neut # (Auto) 14.2 x10^3/uL (2.2-4.8) H 08/28/22 04:05 Lymph # (Auto) 0.8 X10^3/uL (1.3-2.9) L 08/28/22 04:05 [place] # (Auto) 2.6 x10^3/uL (0.3-0.8) H 08/28/22 04:05 Eos # (Auto) 0.0 x10^3/uL (0.0-0.2) 08/28/22 04:05 Baso # (Auto) 0.1 X10^3/uL (0.0-0.1) 08/28/22 04:05 Absolute Nucleated RBC 0.4 /100WBC 08/28/22 04:05 Giant Platelets Few 08/28/22 04:05 Plt Morphology Comment Abnormal (NORMAL) A 08/28/22 04:05 RBC Morphology Abnormal (NORMAL) A 08/28/22 04:05 Anisocytosis 3+ A 08/28/22 04:05 Macrocytosis 1+ A 08/28/22 04:05 Target Cells Slight A 08/28/22 04:05 Stomatocytes Present 08/27/22 18:30 Luis M Cells 1+ A 08/28/22 04:05 Schistocytes Slight A 08/28/22 04:05 PT 12.2 SECONDS (11.8-14.3) 08/22/22 15:59 INR Target Range - 08/22/22 15:59 INR 0.92 (0.8-1.3) 08/22/22 15:59 APTT 68.9 SECONDS (22.9-36.5) H 08/27/22 05:00 PTT Comment - 08/27/22 05:00 Sample Site A-line 08/28/22 13:40 ABG pH 7.380 (7.35-7.45) 08/28/22 13:40 ABG pCO2 23.0 mmHg (35.0-45.0) L 08/28/22 13:40 ABG pO2 74.0 mmHg (80.0-100.0) L 08/28/22 13:40 ABG HCO3 13.6 mmol/L (22-26) L* 08/28/22 13:40 ABG O2 Saturation 94.0 % (90-100) 08/28/22 13:40 ABG Base Excess -9.7 mmol/L (-2.0-2.0) L 08/28/22 13:40 Juan Test N/a 08/28/22 13:40 A-a Gradient 147.0 mmHg 08/28/22 13:40 FiO2 35.0 08/28/22 13:40 Blood Gas Comments Pt soha well elj cdn 08/28/22 13:40 Sodium 137 mmol/L (136-145) 08/28/22 04:05 Corrected Sodium 137 mmol/L (136-145) 08/28/22 04:05 Potassium 3.9 mmol/L (3.5-5.1) 08/28/22 04:05 Chloride 104 mmol/L (98-107) 08/28/22 04:05 Carbon Dioxide 17.9 mmol/L (21-32) L 08/28/22 04:05 BUN 8 mg/dL (7-18) 08/28/22 04:05 Creatinine 1.00 mg/dL (0.55-1.02) 08/28/22 04:05 Est GFR (MDRD) Af Amer > 60 (>60) 08/28/22 04:05 Est GFR (MDRD) Non-Af 58 (>60) L 08/28/22 04:05 Glucose 117 mg/dL (65-99) H 08/28/22 04:05 POC Glucose (mg/dL) 128 mg/dL (65-99) H 08/28/22 14:24 Calcium 8.1 mg/dL (8.5-10.1) L 08/28/22 04:05 Corrected Calcium 9.1 mg/dL (8.5-10.1) 08/23/22 05:09 Magnesium 2.8 mg/dL (2.0-2.9) 08/23/22 05:09 Total Bilirubin 0.40 mg/dL (0.2-1.0) 08/23/22 05:09 AST 31 Units/L (15-37) 08/23/22 05:09 ALT 21 Units/L (12-78) 08/23/22 05:09 Alkaline Phosphatase 128 Units/L (46-116) H 08/23/22 05:09 Total Protein 5.7 g/dL (6.4-8.2) L 08/23/22 05:09 Albumin 2.2 g/dL (3.4-5.0) L 08/23/22 05:09 Globulin 3.5 g/dL (2.5-4.5) 08/23/22 05:09 Albumin/Globulin Ratio 0.6 Ratio (1.1-2.1) L 08/23/22 05:09 Blood Type A POSITIVE 08/27/22 00:15 Antibody Screen Negative 08/27/22 00:15 Crossmatch See Detail 08/27/22 00:15 Procedures (ALL) - Arterial Line Consent obtained: written consent Time out performed: Yes Size(gauge): 20 Technique used: other (USG, see progress note blue sheet for ultrasound image) Patient tolerated procedure: No (sterile tegaderm to site & tubing is NOT looped around thumb.) Site: Left
[2022-08-28 16:35] LABS: ABG BASE EXCESS -8.2 mmol/L (-2.0-2.0); ABG HCO3 15.4 mmol/L (22-26)
--- NOTE | 2022-08-29 00:25 | NOTE.SOAP ---
Soap Note Note for Day of Date of Exam: 08/28/22 Subjective Data Subjective Data: POD #1 after aorto-bifemoral bypass. Remained intubated overnight and required Levophed to support hypotension. Poor urine output and hemoconcentration consistent with 3rd spacing of fluid . Given multiple fluid boluses and 100 mg of Lasiix with adequate urine output. Versed weaned off and extubated easily and is on 3 liters oxygen. Patient is somnolent. Objective Data Temperature: 100.1 F Pulse Rate: 133 Respiratory Rate: 30 Blood Pressure: 143/87 O2 Sat by Pulse Oximetry: 100 Objective Data: Incisions abdomen and groins dry. Both feet cool. Cyanosis resolved . Hgb= 14, K=3.9, Cr=1.0, WBC=17.7 Assessment Assessment: S/p aorto-bifemoral bypass. Now extubated. Stable. Plan Plan: Continue to monitor. Labs in AM. Continue to monitor urine output.
[2022-08-29] MEDS: LR 1,000 ML IV 1,000 ML IV SCH ×3 (02:58→20:54)
[2022-08-29] MEDS: LEVOPHED 8 MG/250 ML IV *PREMIX 8 MG/250 ML PLAST..BAG IV PRN (05:45)
[2022-08-29] MEDS ORDERED: NS 1,000 ML IV 1,000 ML IV ONE (08:19)
[2022-08-29] MEDS: PROTONIX INJ 40 MG VIAL IVP SCH (08:48)
[2022-08-29] MEDS: CHECK PATCH XX SCH ×2 (08:48→20:54)
[2022-08-29] MEDS: LACRI-LUBE S.O.P. AFFEYE SCH ×2 (08:49→20:54)
[2022-08-29] MEDS: LOVENOX INJ 40 MG SYR SC SCH (08:49)
[2022-08-29] MEDS: NICOTINE PATCH TD SCH (08:49)
[2022-08-29 09:20] LABS: BASOPHILS # (AUTO) 0.1 X10^3/uL (0.0-0.1); BASOPHILS % (AUTO) 0.4 % (0.2-1.0); EOSINOPHILS % (AUTO) 0.1 % (0.9-2.9); HEMATOCRIT 31.3 % (36.0-47.0); LYMPHOCYTES # (AUTO) 0.8 X10^3/uL (1.3-2.9); LYMPHOCYTES % (AUTO) 4.7 % (21.0-51.0); MEAN CORPUSCULAR HEMOGLOBIN 36.4 pg (27.0-34.0); MEAN CORPUSCULAR HGB CONC 33.9 g/dL (33.0-35.0); MEAN CORPUSCULAR VOLUME 107.2 fL (80.0-100.0); MEAN PLATELET VOLUME 7.8 fL (7.4-11.0); MONOCYTES # (AUTO) 1.4 x10^3/uL (0.3-0.8); MONOCYTES % (AUTO) 7.9 % (0.0-13.0); NEUTROPHILS # (AUTO) 15.2 x10^3/uL (2.2-4.8); NEUTROPHILS % (AUTO) 86.9 % (42.0-75.0); PLATELET COUNT 253 X10^3/uL (150.0-450.0); RED BLOOD COUNT 2.92 X10^6/uL (3.5-5.4); RED CELL DISTRIBUTION WIDTH 25.1 % (11.6-16.5); WHITE BLOOD COUNT 17.5 X10^3/uL (3.6-10.0)
[2022-08-29 09:29] LABS: BLOOD UREA NITROGEN 13 mg/dL (7-18); CALCIUM 6.8 mg/dL (8.5-10.1); CARBON DIOXIDE 17.6 mmol/L (21-32); CHLORIDE 105 mmol/L (98-107); CREATININE 1.39 mg/dL (0.55-1.02); GLUCOSE 109 mg/dL (65-99); POTASSIUM 4.4 mmol/L (3.5-5.1); SODIUM 135 mmol/L (136-145); eGFR NON BLACK RACES 40 (>60)
[2022-08-29 09:35] LABS: HEMOGLOBIN 10.6 g/dL (12.0-16.0)
[2022-08-29 10:12] LABS: PLATELET MORPHOLOGY COMMENT NORMAL (NORMAL)
[2022-08-29 10:13] LABS: ANISOCYTOSIS 3+; BURR CELLS 1+; SCHISTOCYTES SLIGHT; TARGET CELLS SLIGHT
[2022-08-29] MEDS ORDERED: LASIX IVP ONE (15:00)
[2022-08-29] MEDS: DILAUDID INJ IVP PRN (21:11)
--- NOTE | 2022-08-30 04:38 | NOTE.SOAP ---
Soap Note Note for Day of Date of Exam: 08/29/22 Subjective Data Subjective Data: Patient has remained extubated since yesterday with good oxygen saturation on 3 liters oxygen . Still required significant fluid administration for hypotension and poor urine out put that appeared pre-renal. Also required BP support with Levophed which now has been weaned off. Given 2 doses of lasix today and now finally making consistent adequate urine. Significant + fluid balance . No SOB Objective Data Objective Data: Abdomen soft . Dressings intact and dry. Palpable femoral pulses b/l. Both feet cool and hard to doppler flow distally as expected. Has significant disease below inguinal,ligaments b/l that may need to be addressed this hopitaliization after she is improved from her aorto-bifemoral bypass.. Hgb=10.6, WBC=17.5 K=4.4, Cr=1.39 Assessment Assessment: Pod # 2 after aorto-bifemoral bypass and is continuing to improve. Plan Plan: Start clear liquid diet. Monitor urine output . labs in AM.
[2022-08-30] MEDS: LR 1,000 ML IV 1,000 ML IV SCH ×3 (05:30→23:23)
[2022-08-30] MEDS: DOPAMINE IV PREMIX 400 MG/250 ML 400 MG/250 ML BAG IV PRN (05:30)
--- NOTE | 2022-08-30 07:23 | RAD ---
HISTORYPOST OP FOLLOW UPSTUDYCHEST, 1 [id number]/12/2023.TECHNIQUEPA or AP view of the chestFINDINGSCardiac and mediastinal contours are within normal limits. There are mild hazy right base opacity. Left base consolidation with silhouetting the left hemidiaphragm. Small bilateral pleural effusions. Nodular opacity in the peripheral left upper lobe measures approximately 1.7 cm medial-lateral. No pneumothorax.IMPRESSIONBibasilar opacities worse on the left may represent aspiration or pneumonia. Small pleural effusions.Recommend nonemergent CT chest to evaluate nodular left upper lobe opacity.Electronically signed by: Luther Ruiz (Aug 30, 2022 07:22:07)
[2022-08-30] MEDS: PROTONIX INJ 40 MG VIAL IVP SCH (08:44)
[2022-08-30] MEDS: CHECK PATCH XX SCH ×2 (08:44→21:15)
[2022-08-30] MEDS: LOVENOX INJ 40 MG SYR SC SCH (08:45)
[2022-08-30] MEDS: NICOTINE PATCH TD SCH (08:45)
[2022-08-30] MEDS: LACRI-LUBE S.O.P. AFFEYE SCH ×2 (08:46→21:15)
[2022-08-30 10:29] LABS: BASOPHILS % (AUTO) 0 % (0.2-1.0); EOSINOPHILS % (AUTO) 0.1 % (0.9-2.9); HEMATOCRIT 24.7 % (36.0-47.0); HEMOGLOBIN 8.5 g/dL (12.0-16.0); LYMPHOCYTES # (AUTO) 0.6 X10^3/uL (1.3-2.9); LYMPHOCYTES % (AUTO) 3.8 % (21.0-51.0); MEAN CORPUSCULAR HEMOGLOBIN 36.7 pg (27.0-34.0); MEAN CORPUSCULAR HGB CONC 34.4 g/dL (33.0-35.0); MEAN CORPUSCULAR VOLUME 106.5 fL (80.0-100.0); MEAN PLATELET VOLUME 7.8 fL (7.4-11.0); MONOCYTES # (AUTO) 0.8 x10^3/uL (0.3-0.8); MONOCYTES % (AUTO) 4.7 % (0.0-13.0); NEUTROPHILS # (AUTO) 15.4 x10^3/uL (2.2-4.8); NEUTROPHILS % (AUTO) 91.4 % (42.0-75.0); PLATELET COUNT 235 X10^3/uL (150.0-450.0); RED BLOOD COUNT 2.32 X10^6/uL (3.5-5.4); WHITE BLOOD COUNT 16.8 X10^3/uL (3.6-10.0)
[2022-08-30 10:34] LABS: BLOOD UREA NITROGEN 18 mg/dL (7-18); CALCIUM 6.2 mg/dL (8.5-10.1); CARBON DIOXIDE 19.3 mmol/L (21-32); CHLORIDE 105 mmol/L (98-107); CREATININE 1.48 mg/dL (0.55-1.02); GLUCOSE 85 mg/dL (65-99); POTASSIUM 3.6 mmol/L (3.5-5.1); SODIUM 135 mmol/L (136-145); eGFR NON BLACK RACES 37 (>60)
[2022-08-30 10:55] LABS: ANISOCYTOSIS 2+; BAND NEUTROPHILS % 19 % (0-10); PLATELET MORPHOLOGY COMMENT NORMAL (NORMAL)
[2022-08-30 10:56] LABS: BURR CELLS 1+; SCHISTOCYTES SLIGHT; TARGET CELLS SLIGHT
--- NOTE | 2022-08-30 11:57 | NOTE.SOAP ---
Soap Note Note for Day of Date of Exam: 08/30/22 Subjective Data Subjective Data: Post op day # 3 after aorto-bifemoral bypass for aorto iliac occlusion. Weak but doing well . Making good urine output finally > 50 cc/ hour . Left subcalvial central line placed . CXR showed small b/l pleural effusions , which is acceptable given the significant amount of fluif we had to give her . Mobilizing some of that fluid now and IVF maintenance dialed down to 80 cc/hour . On renal dose dopamine. Did not swallow clear liquids well and swallowing tst is pending. Off levophed to support BP. Awake and alert and resting comfotably but is very weak. Objective Data Temperature: 98.4 F Pulse Rate: 123 Respiratory Rate: 29 Blood Pressure: 115/62 O2 Sat by Pulse Oximetry: 100 Objective Data: Abdomen is benign.Abdominal and groin incisions are clean with now drainage. Palpable femoral pulses . Both feet cool but rubor is less. Assessment Assessment: Aorto-iliac occlusive disease, bilateral severe peripheral vascular disease. Plan Plan: Continue recovery from AFB bypass. Watch urine output , K+ and legs . Ramu reese peripheral intervention right leg due to still present critical ischemia below the occluded aorta.
--- NOTE | 2022-08-30 15:23 | OR.IMMED ---
IMMEDIATE POST-OP NOTE Immediate Post-Op Note Pre-Op Diagnosis: poor IV access Post-Op Diagnosis: same Procedure: left subclavian vein triple lumen non-tunneled catheter access Description of Procedure: see operative note Surgeon/Delicatessen Store Manager: Tien Findings: as above Estimated Blood Loss: Minimal Complications: none Progress Notes: Continue in ICU. Post procedure CXR shows good placement and no pneumothorax.
--- NOTE | 2022-08-30 15:33 | RAD ---
EXAM: CHEST X-RAYHISTORY: Central line placement verification.TECHNIQUE: AP CXR dated August 30, 2022 at 9:33 AM.COMPARISON: CXR dated August 30, 2022 at 4:35 AM.FINDINGS:There is interval placement of a left subclavian central venous catheter with distal tip in SVC (adequate position). Recommend careful clinical correlation to ensure venous blood return.There is aortic atherosclerosis. The heart size and mediastinum are within normal limits. There is lung parenchymal hyperlucency in keeping with COPD/emphysema. No pneumothorax is seen.There is stable appearance of increased hazy opacity in the left lower lobe/lung base with loss of definition of the hemidiaphragm in keeping with pleural effusion and/or basilar atelectasis; cannot rule out concomitant pneumonic infiltrate in the appropriate clinical setting. Recommend clinical correlation and appropriate followup evaluation as clinically warranted.The visualized bony structures are within normal limits.IMPRESSION:1. Interval placement of a left subclavian central venous catheter with distal tip in SVC (adequate position). Recommend careful clinical correlation to ensure venous blood return.2. Stable COPD/emphysema.3. Stable appearance of increased hazy opacity in the left lower lobe/lung base with loss of definition of the hemidiaphragm in keeping with pleural effusion and/or basilar atelectasis; cannot rule out concomitant pneumonic infiltrate in the appropriate clinical setting.4. Recommend clinical correlation and appropriate followup evaluation as clinically warranted.Electronically signed by: Maurice Hawley (Aug 30, 2022 15:32:07)
[2022-08-30] MEDS: PERCOCET TAB 5/325 MG PO PRN (21:16)
[2022-08-31 05:37] LABS: BASOPHILS % (AUTO) 0.1 % (0.2-1.0); EOSINOPHILS # (AUTO) 0.1 x10^3/uL (0.0-0.2); EOSINOPHILS % (AUTO) 0.6 % (0.9-2.9); HEMATOCRIT 24.3 % (36.0-47.0); HEMOGLOBIN 8.3 g/dL (12.0-16.0); LYMPHOCYTES # (AUTO) 0.5 X10^3/uL (1.3-2.9); MEAN CORPUSCULAR HEMOGLOBIN 36.5 pg (27.0-34.0); MEAN CORPUSCULAR HGB CONC 34.1 g/dL (33.0-35.0); MEAN CORPUSCULAR VOLUME 106.8 fL (80.0-100.0); MEAN PLATELET VOLUME 8.8 fL (7.4-11.0); MONOCYTES # (AUTO) 0.7 x10^3/uL (0.3-0.8); NEUTROPHILS # (AUTO) 15.2 x10^3/uL (2.2-4.8); NEUTROPHILS % (AUTO) 92.3 % (42.0-75.0); PLATELET COUNT 233 X10^3/uL (150.0-450.0); RED BLOOD COUNT 2.27 X10^6/uL (3.5-5.4); RED CELL DISTRIBUTION WIDTH 23.5 % (11.6-16.5); WHITE BLOOD COUNT 16.5 X10^3/uL (3.6-10.0)
--- NOTE | 2022-08-31 05:38 | RAD ---
PROCEDURE: Chest X-ray 1 View .HISTORY: Postop.TECHNIQUE: AP portable done at 4:40 a.m..COMPARISON: 08/30/2022.TECHNICAL QUALITY: Satisfactory .FINDINGS:Unchanged left subclavian harley catheter IV line.Normal size heart.Mediastinum and hilar regions show no masses or lymphadenopathy .Normal central vascularity .Improving consolidation and atelectasis lung bases with mild residual changes present. No definite pleural fluid.No acute bony abnormality .IMPRESSION:Improving pneumonia and atelectasis bilaterally.Electronically signed by: Maykel Gould (Aug 31, 2022 05:36:50)
[2022-08-31 05:45] LABS: BLOOD UREA NITROGEN 23 mg/dL (7-18); CALCIUM 6.4 mg/dL (8.5-10.1); CARBON DIOXIDE 19.9 mmol/L (21-32); CHLORIDE 105 mmol/L (98-107); CREATININE 1.49 mg/dL (0.55-1.02); GLUCOSE 105 mg/dL (65-99); POTASSIUM 3.5 mmol/L (3.5-5.1); SODIUM 135 mmol/L (136-145); eGFR NON BLACK RACES 37 (>60)
[2022-08-31 05:54] LABS: BAND NEUTROPHILS % 4 % (0-10); PLATELET MORPHOLOGY COMMENT NORMAL (NORMAL)
[2022-08-31 05:55] LABS: ANISOCYTOSIS 2+; BURR CELLS PRESENT; MICROCYTOSIS 1+; SCHISTOCYTES PRESENT; TARGET CELLS PRESENT
[2022-08-31] MEDS: PERCOCET TAB 5/325 MG PO PRN ×3 (08:27→23:10)
[2022-08-31] MEDS: NICOTINE PATCH TD SCH ×2 (08:27→08:56)
[2022-08-31] MEDS: LOVENOX INJ 40 MG SYR SC SCH (08:27)
[2022-08-31] MEDS: PROTONIX INJ 40 MG VIAL IVP SCH (08:27)
[2022-08-31] MEDS: CHECK PATCH XX SCH ×2 (08:55→21:57)
[2022-08-31] MEDS: LACRI-LUBE S.O.P. AFFEYE SCH (08:56)
[2022-08-31] MEDS: LR 1,000 ML IV 1,000 ML IV SCH ×2 (11:16→21:57)
[2022-08-31] MEDS: LASIX IVP ONE ×2 (12:11→13:08)
[2022-08-31] MEDS ORDERED: NS 1,000 ML IV 1,000 ML IV ONE (12:11)
[2022-09-01] MEDS: LR 1,000 ML IV 1,000 ML IV SCH (05:05)
[2022-09-01] MEDS ORDERED: NS 1,000 ML IV 1,000 ML IV ONE ×2 (08:21→16:03)
[2022-09-01] MEDS ORDERED: NS 1,000 ML IV 1,000 ML ONE (08:22)
[2022-09-01 09:12] LABS: ALANINE AMINOTRANSFERASE 27 Units/L (12-78); ALBUMIN 0.8 g/dL (3.4-5.0); ALKALINE PHOSPHATASE 158 Units/L (46-116); ASPARTATE AMINO TRANSFERASE 77 Units/L (15-37); BLOOD UREA NITROGEN 26 mg/dL (7-18); CALCIUM 6.3 mg/dL (8.5-10.1); CARBON DIOXIDE 20.8 mmol/L (21-32); CHLORIDE 105 mmol/L (98-107); COR CA(FOR HYPOALB) 8.9 mg/dL (8.5-10.1); CREATININE 1.74 mg/dL (0.55-1.02); GLUCOSE 80 mg/dL (65-99); POTASSIUM 3.6 mmol/L (3.5-5.1); SODIUM 134 mmol/L (136-145); TOTAL PROTEIN 3.7 g/dL (6.4-8.2); eGFR NON BLACK RACES 31 (>60)
[2022-09-01] MEDS ORDERED: LASIX IVP ONE ×3 (09:23→18:36)
[2022-09-01] MEDS: NICOTINE PATCH TD SCH (09:28)
[2022-09-01] MEDS: PROTONIX INJ 40 MG VIAL IVP SCH (09:28)
[2022-09-01] MEDS: CHECK PATCH XX SCH ×2 (09:29→20:22)
[2022-09-01] MEDS: LOVENOX INJ 40 MG SYR SC SCH (09:29)
[2022-09-01] MEDS: NS 1,000 ML IV 1,000 ML IV SCH ×3 (10:23→20:51)
[2022-09-01] MEDS: ZOFRAN INJ 4 MG VIAL IVP PRN (11:04)
--- NOTE | 2022-09-01 12:38 | RAD ---
HISTORYshortness of breathSTUDYCHEST, 1 VIEWCOMPARISONChest x-ray 08/31/2022, 08/30/2022FINDINGSLeft PICC line with its tip projecting over the mid SVC. The heart is normal in size. The pulmonary vascular is within normal limits. There are mild atherosclerotic calcifications of the aortic arch. Mild interval worsening of right lower lung airspace opacities and small right pleural effusion. There are persistent left airspace opacities and a small left pleural effusion. No pneumothorax. No acute osseous abnormality.IMPRESSIONInterval worsening of airspace opacities and small bilateral pleural effusions. Consider high-level imaging with CT chest for further characterization.Electronically signed by: Nehemiah Gastelum (Sep 01, 2022 12:37:25)
[2022-09-01] MEDS ORDERED: ALBUMIN HUMAN 25%- 100 ML 100 ML IV ONE ×2 (12:46→16:03)
--- NOTE | 2022-09-01 12:53 | NOTE.SOAP ---
Soap Note Note for Day of Date of Exam: 08/31/22 Subjective Data Subjective Data: Patient stable since surgery and had decrease in urine outout today. Monitoring this closely. Gave additional IV lasix and IVFs Objective Data Temperature: 97.7 F Pulse Rate: 120 Respiratory Rate: 18 Blood Pressure: 95/61 O2 Sat by Pulse Oximetry: 99 Objective Data: Incisions clean, very lethargic. not eating well. Assessment Assessment: s/p aorto-bifemoral bypass, very weak, long history of alcohol and tobacco abuse, poor po intake, borderline renal function/ urine output. Plan Plan: Check labs, may need PEG tube ,discussed PEG tube with still needs b/l LE arterial intervention, monitor urine output, may need nephrology consult.
[2022-09-01] MEDS: DOPAMINE IV PREMIX 400 MG/250 ML 400 MG/250 ML BAG IV PRN (13:56)
[2022-09-01] MEDS ORDERED: NS 1,000 ML IV 1,000 ML IV SCH (21:09)
--- NOTE | 2022-09-01 23:09 | NOTE.SOAP ---
Soap Note Note for Day of Date of Exam: 09/01/22 Subjective Data Subjective Data: Still very weak with porr po intake and urine outout has dropped off to nothing despite IVF and Lasix and dopamine . Objective Data Temperature: 97.5 F Pulse Rate: 109 Respiratory Rate: 24 Blood Pressure: 134/58 O2 Sat by Pulse Oximetry: 100 Objective Data: Still very weak. Not seen by me today. Discussed with nurses Assessment Assessment: S/P aorto-bifemoral bypass of aortic occlusion. Stable but has apparent renal failure Plan Plan: KVO fluids . Telehealth nephology tomorrow. Labs in AM.
[2022-09-02] MEDS: LEVOPHED 8 MG/250 ML IV *PREMIX 8 MG/250 ML PLAST..BAG IV PRN ×3 (04:25→23:09)
[2022-09-02 05:36] LABS: BASOPHILS % (AUTO) 0.1 % (0.2-1.0); EOSINOPHILS % (AUTO) 0.1 % (0.9-2.9); HEMATOCRIT 21.7 % (36.0-47.0); HEMOGLOBIN 7.3 g/dL (12.0-16.0); LYMPHOCYTES # (AUTO) 0.5 X10^3/uL (1.3-2.9); LYMPHOCYTES % (AUTO) 2.4 % (21.0-51.0); MEAN CORPUSCULAR HEMOGLOBIN 36.6 pg (27.0-34.0); MEAN CORPUSCULAR HGB CONC 33.4 g/dL (33.0-35.0); MEAN CORPUSCULAR VOLUME 109.4 fL (80.0-100.0); MEAN PLATELET VOLUME 8.1 fL (7.4-11.0); MONOCYTES # (AUTO) 0.8 x10^3/uL (0.3-0.8); MONOCYTES % (AUTO) 3.7 % (0.0-13.0); NEUTROPHILS # (AUTO) 20.9 x10^3/uL (2.2-4.8); NEUTROPHILS % (AUTO) 93.7 % (42.0-75.0); PLATELET COUNT 246 X10^3/uL (150.0-450.0); RED BLOOD COUNT 1.99 X10^6/uL (3.5-5.4); RED CELL DISTRIBUTION WIDTH 22.9 % (11.6-16.5); WHITE BLOOD COUNT 22.3 X10^3/uL (3.6-10.0)
[2022-09-02 05:49] LABS: BLOOD UREA NITROGEN 29 mg/dL (7-18); CALCIUM 6.4 mg/dL (8.5-10.1); CHLORIDE 106 mmol/L (98-107); CREATININE 2.07 mg/dL (0.55-1.02); GLUCOSE 56 mg/dL (65-99); POTASSIUM 3.6 mmol/L (3.5-5.1); SODIUM 137 mmol/L (136-145); eGFR NON BLACK RACES 25 (>60)
[2022-09-02 05:59] LABS: BAND NEUTROPHILS % 6 % (0-10); PLATELET MORPHOLOGY COMMENT NORMAL (NORMAL)
[2022-09-02 06:00] LABS: ANISOCYTOSIS 2+; BURR CELLS PRESENT; SCHISTOCYTES PRESENT; TARGET CELLS PRESENT
[2022-09-02] MEDS ORDERED: LASIX IVP ONE ×2 (06:19→12:00)
[2022-09-02] MEDS: D5 NS 1,000 ML IV 1,000 ML IV SCH ×2 (06:32→20:15)
[2022-09-02] MEDS: CHECK PATCH XX SCH ×2 (09:39→20:15)
[2022-09-02] MEDS: NICOTINE PATCH TD SCH (09:40)
[2022-09-02] MEDS: LOVENOX INJ 40 MG SYR SC SCH (09:40)
[2022-09-02] MEDS: PROTONIX INJ 40 MG VIAL IVP SCH (09:40)
[2022-09-02] MEDS ORDERED: NS 1,000 ML IV 1,000 ML IV ONE (10:49)
[2022-09-02 11:12] LABS: ABG BASE EXCESS -14.1 mmol/L (-2.0-2.0)
[2022-09-02 11:13] LABS: ABG HCO3 14.3 mmol/L (22-26)
[2022-09-02] MEDS ORDERED: SODIUM BICARBONATE 8.4% INJ ADULT IVP ONE ×3 (11:30→23:58)
[2022-09-02] MEDS ORDERED: D50W ABBOJECT SYR IV ONE (12:37)
--- NOTE | 2022-09-02 14:46 | CT ---
HISTORYs/p aorto- bifem bypass, rising WBCSTUDYABDOMEN/PELVIS W/O CONCOMPARISONCTA aortic runoff 08/22/2022TECHNIQUEMultiple axial images of the abdomen and pelvis were obtained from the lung bases to the pubic symphysis without the administration of IV contrast. Dose reduction techniques including Automated Exposure Control (AEC) and adjustment of mA and kV were utilized.FINDINGSLimited evaluation of the abdominal and pelvic organs due to lack of IV contrast.Moderate bilateral pleural effusions with associated atelectasis. The main pulmonary artery is dilated measuring up to 3.5 centimeters, which is suggestive elevated right heart pressures. Mild to moderate coronary artery calcifications. The heart is normal in size with trace pericardial effusion.Diffuse marked hepatic steatosis. The liver is normal in size and contour. No bile duct dilatation. The gallbladder is unremarkable. The spleen is normal in size. No adrenal masses. No peripancreatic fluid collection. No hydronephrosis or nephrolithiasis. Postoperative changes of aortic by femoral bypass for advanced atherosclerotic calcifications of the infrarenal aorta with probable near occlusion/critical stenosis (see prior CTA runoff 08/22/2022).The small bowel and colon are normal in caliber. There are mildly dilated fluid-filled loops of small bowel with air-fluid levels. No transition point is visualized. This is likely secondary to postoperative ileus from recent surgery. Bladder is decompressed secondary to Fisher catheter. Prior hysterectomy. Moderate amount of fluid in the abdomen and pelvis. No free air noted in the abdomen or pelvis. No abdominal or pelvic lymphadenopathy. Advanced anasarca. No destructive or expansile osseous changes. Old pelvic fractures. There is ane intramedullary delete joi and cannulated screw in the left femur. Posterior fusion hardware is seen at L4 through S1 with grade 1 anterolisthesis of L4 on L5.IMPRESSION1. No CT findings to explain patient's rising white blood cell count, however evaluation is limited due to lack of IV contrast, advanced anasarca and moderate free fluid in the pelvis2. Moderate bilateral pleural effusions with associated atelectasis.3. Dilated main pulmonary artery suggestive elevated right heart pressures.4. Postsurgical changes of a aortobifemoral bypass for advanced atherosclerotic calcifications of the intrarenal abdominal aorta. However, again evaluation is limited due to lack of IV contrast.5. Mildly dilated fluid-filled loops of small bowel with air-fluid levels. No specific transition point is visualized. These findings are likely secondary to postoperative ileus from recent surgery.3. Moderate amount of free fluid in the pelvis and advanced anasarca.Electronically signed by: Nehemiah Gastelum (Sep 02, 2022 14:44:44)
--- NOTE | 2022-09-02 16:08 | RAD ---
HISTORYngt placement verificationSTUDYCHEST, 1 VIEWCOMPARISONChest x-ray 09/01/2022FINDINGSAn endogastric tube is seen coursing below the diaphragm with its tip and side port projecting over the expected location of the stomach. There is a right PICC line with its tip in the mid SVC. There are bilateral airspace opacities and pleural effusions that do not appear significantly changed when compared to prior. No pneumothorax. No acute osseous abnormality.IMPRESSIONEndogastric tube seen coursing below the diaphragm with its tip and side-port projecting over the expected location of the stomach.Otherwise, no significant interval change..Electronically signed by: Nehemiah Gastelum (Sep 02, 2022 16:07:36)
--- NOTE | 2022-09-02 23:55 | NOTE.SOAP ---
Soap Note Note for Day of Date of Exam: 09/02/22 Subjective Data Subjective Data: Still no significant urine output despite lasix and flluid and dopamine. Have backed off on fluid, treating acidosis and will need nephrology consult and possible transfer for dialysis . Still with good pulses in groins and cool feet bilaterally. Objective Data Temperature: 97.5 F Pulse Rate: 113 Respiratory Rate: 24 Blood Pressure: 123/83 O2 Sat by Pulse Oximetry: 100 Objective Data: As above , Hgb=7.3. WBC=22k, K=3.6, Cr=2.07 Glucose = 56, CT abdomen/ pelvis and shows no fluid collection or abscess. CT does show dilated stomach and ileus. Assessment Assessment: s/p aortobifemoral bypass, renal failure , hypoglycemic, Plan Plan: Change fluid to D5 NS , Back off on total fluid, nephrology consult, possible transfer.
[2022-09-03] MEDS: D5 NS 1,000 ML IV 1,000 ML IV SCH ×2 (01:05→08:46)
[2022-09-03] MEDS ORDERED: D50W ABBOJECT SYR IV ONE (01:22)
[2022-09-03] MEDS: LEVOPHED 8 MG/250 ML IV *PREMIX 8 MG/250 ML PLAST..BAG IV PRN ×2 (04:38→10:15)
[2022-09-03 05:26] LABS: BASOPHILS # (AUTO) 0.1 X10^3/uL (0.0-0.1); BASOPHILS % (AUTO) 0.1 % (0.2-1.0); EOSINOPHILS # (AUTO) 0.1 x10^3/uL (0.0-0.2); EOSINOPHILS % (AUTO) 0.2 % (0.9-2.9); HEMATOCRIT 23.8 % (36.0-47.0); LYMPHOCYTES # (AUTO) 0.5 X10^3/uL (1.3-2.9); LYMPHOCYTES % (AUTO) 1.5 % (21.0-51.0); MEAN CORPUSCULAR HEMOGLOBIN 36.3 pg (27.0-34.0); MEAN CORPUSCULAR HGB CONC 33.5 g/dL (33.0-35.0); MEAN CORPUSCULAR VOLUME 108.5 fL (80.0-100.0); MEAN PLATELET VOLUME 8.9 fL (7.4-11.0); NEUTROPHILS # (AUTO) 32.4 x10^3/uL (2.2-4.8); NEUTROPHILS % (AUTO) 95.2 % (42.0-75.0); PLATELET COUNT 248 X10^3/uL (150.0-450.0); RED BLOOD COUNT 2.19 X10^6/uL (3.5-5.4); RED CELL DISTRIBUTION WIDTH 22.9 % (11.6-16.5)
[2022-09-03 05:35] LABS: ALBUMIN 1.4 g/dL (3.4-5.0); CALCIUM 6.2 mg/dL (8.5-10.1); CARBON DIOXIDE 23.5 mmol/L (21-32); COR CA(FOR HYPOALB) 8.3 mg/dL (8.5-10.1); CREATININE 2.45 mg/dL (0.55-1.02); POTASSIUM 3.4 mmol/L (3.5-5.1); TOTAL PROTEIN 4.2 g/dL (6.4-8.2)
[2022-09-03 06:01] LABS: BAND NEUTROPHILS % 7 % (0-10); METAMYELOCYTES % 2; MYELOCYTES % 1; PLATELET MORPHOLOGY COMMENT NORMAL (NORMAL)
[2022-09-03 06:02] LABS: ANISOCYTOSIS 2+; SCHISTOCYTES PRESENT; STOMATOCYTES PRESENT
[2022-09-03] MEDS ORDERED: ZOSYN VIAL 2.25 GRAMS 2.25 G in NS 100 ML IV 100 ML IV SCH (07:00)
[2022-09-03 08:25] LABS: ABG BASE EXCESS -10.5 mmol/L (-2.0-2.0)
[2022-09-03 08:26] LABS: ABG HCO3 17.9 mmol/L (22-26)
[2022-09-03] MEDS ORDERED: SODIUM BICARBONATE 8.4% INJ ADULT IVP ONE (08:40)
[2022-09-03] MEDS: PROTONIX INJ 40 MG VIAL IVP SCH (08:46)
[2022-09-03] MEDS: LOVENOX INJ 40 MG SYR SC SCH (08:46)
[2022-09-03] MEDS: NICOTINE PATCH TD SCH (08:46)
[2022-09-03] MEDS: CHECK PATCH XX SCH (08:47)
[2022-09-03] MEDS: DILAUDID INJ IVP PRN (10:58)
[2022-09-03] MEDS ORDERED: ATIVAN INJ 2 MG VIAL IVP PRN (12:15)
[2022-09-03 13:49] VITALS: BP 45/10; O2SAT 71
[2022-09-03 14:42] VITALS: PULSE 0
[2022-09-03 16:19] VITALS: TEMP 97.6
--- NOTE | 2022-09-03 18:35 | W.DIS.FURT ---
Summary of Discharge Discharge Summary of Date Date of Exam: 09/03/22 Admission Date Date of Admission: 08/22/22 Admission Diagnosis Hospital Course: This patient is a 72 year old female who presented to the office on the day of admission, August 22 ,with severe rest pain of both lower extremities, cyanosis of both legs and no palpable femoral pulses. 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 Because of her small aorta and the extensive occlusions she was not deemed a good candidate for endovascular repair . Also with significant history of tobacco abuse with history of alcohol abuse. She underwent a Lexiscan stress test which showed an ejection fraction of 68% with no reversible ischemia. Although we prophylactically treated her to prevent delirium tremens she became very anxious and the surgery which was originally scheduled for the 24 of August was canceled. She did well over the weekend and her surgery was scheduled for August 27 when she underwent open aorto-bifemoral bypass with endarterectomy of the right common femoral artery . She did well with the surgery itself . Post procedure she remained intubated overnight was extubated the next day without difficulty. She required blood pressure support with Levophed and significant amount of fluid resuscitation and had poor urine output ,but on August 29 she began to make good ,consistent urine consistent with recovering kidneys. We were able to wean the Levophed off. Our plan was to get her through this and then selectively repair each lower extremity. Unfortunately she stopped making urine around September 01. This was despite fluid administration, Lasix and renal dose dopamine. She remained very weak .She developed bilateral pleural effusions but maintained 100% saturation on 3 liters of oxygen. I was in the process of arranging for Nephrology consultation and possible transfer for dialysis. Patient had had very poor intake . PEG tube placement was discussed .She developed an elevated white blood cell count and was started on IV antibiotics . CT of the abdomen showed no evidence of abscess. The family decided to make her a [id number] and did withdraw care and she was pronounced on the afternoon of September 03. All questions have been answered in person by myself with the and the family at the bedside. Vital Signs: Vital Signs (72 hours) 09/01/22 23:09 09/02/22 23:55 09/01/22 12:52 Temperature 97.5 F L 97.5 F L 97.7 F Pulse Rate 109 H 113 H 120 H Respiratory Rate 24 24 18 Blood Pressure 134/58 123/83 95/61 O2 Sat by Pulse Oximetry 100 100 99 Oxygen Delivery Method Oxygen Flow Rate FIO2% 08/31/22 18:02 08/31/22 18:02 08/31/22 18:05 Temperature Pulse Rate 123 H 122 H Respiratory Rate 25 H 24 Blood Pressure 111/64 O2 Sat by Pulse Oximetry 100 100 Oxygen Delivery Method Oxygen Flow Rate FIO2% 08/31/22 19:00 08/31/22 19:00 08/31/22 20:00 Temperature 97.7 F Pulse Rate 124 H 120 H Respiratory Rate 24 18 Blood Pressure 111/59 95/61 O2 Sat by Pulse Oximetry 97 99 Oxygen Delivery Method Nasal Cannula Nasal Cannula Nasal Cannula Oxygen Flow Rate 3 3 3 FIO2% 08/31/22 21:00 08/31/22 23:10 08/31/22 22:00 Temperature Pulse Rate 117 H 123 H Respiratory Rate 18 16 26 H Blood Pressure 89/52 100/61 O2 Sat by Pulse Oximetry 99 99 Oxygen Delivery Method Nasal Cannula Nasal Cannula Oxygen Flow Rate 3 3 FIO2% 08/31/22 23:00 09/01/22 00:00 09/01/22 00:10 Temperature 97.7 F Pulse Rate 123 H 121 H Respiratory Rate 22 20 18 Blood Pressure 150/69 119/54 O2 Sat by Pulse Oximetry 100 98 Oxygen Delivery Method Nasal Cannula Nasal Cannula Oxygen Flow Rate 3 3 FIO2% 09/01/22 01:00 08/31/22 20:50 09/01/22 02:00 Temperature Pulse Rate 117 H 121 H Respiratory Rate 19 20 Blood Pressure 104/68 122/58 O2 Sat by Pulse Oximetry 94 L 97 Oxygen Delivery Method Nasal Cannula Nasal Cannula Nasal Cannula Oxygen Flow Rate 3 3 3 FIO2% 32 09/01/22 03:00 09/01/22 04:00 09/01/22 05:00 Temperature 97.7 F Pulse Rate 123 H 120 H 110 H Respiratory Rate 22 30 H 22 Blood Pressure 130/56 112/67 91/51 O2 Sat by Pulse Oximetry 95 92 L 97 Oxygen Delivery Method Nasal Cannula Nasal Cannula Nasal Cannula Oxygen Flow Rate 3 3 3 FIO2% 09/01/22 06:00 09/01/22 07:00 09/01/22 07:00 Temperature Pulse Rate 119 H 122 H Respiratory Rate 23 23 Blood Pressure 92/46 132/87 O2 Sat by Pulse Oximetry 100 100 Oxygen Delivery Method Nasal Cannula Nasal Cannula Nasal Cannula Oxygen Flow Rate 3 3 3 FIO2% 09/01/22 08:00 09/01/22 09:00 09/01/22 08:55 Temperature 97.9 F Pulse Rate 115 H 118 H Respiratory Rate 24 22 Blood Pressure 109/54 113/46 O2 Sat by Pulse Oximetry 100 100 Oxygen Delivery Method Nasal Cannula Nasal Cannula Nasal Cannula Oxygen Flow Rate 3 3 3 FIO2% 32 09/01/22 10:00 09/01/22 11:00 09/01/22 12:00 Temperature 97.3 F L Pulse Rate 120 H 118 H 116 H Respiratory Rate 30 H 24 22 Blood Pressure 117/48 99/62 109/53 O2 Sat by Pulse Oximetry 100 100 100 Oxygen Delivery Method Nasal Cannula Nasal Cannula Nasal Cannula Oxygen Flow Rate 3 3 3 FIO2% 09/01/22 13:00 09/01/22 14:00 09/01/22 15:00 Temperature Pulse Rate 115 H 114 H 114 H Respiratory Rate 24 22 22 Blood Pressure 110/62 113/53 117/92 O2 Sat by Pulse Oximetry 100 100 100 Oxygen Delivery Method Nasal Cannula Nasal Cannula Nasal Cannula Oxygen Flow Rate 3 3 3 FIO2% 09/01/22 16:00 09/01/22 17:00 09/01/22 18:00 Temperature Pulse Rate 112 H 113 H 111 H Respiratory Rate 20 22 25 H Blood Pressure 116/51 121/57 135/49 O2 Sat by Pulse Oximetry 100 100 100 Oxygen Delivery Method Nasal Cannula Nasal Cannula Nasal Cannula Oxygen Flow Rate 3 3 3 FIO2% 09/01/22 19:00 09/01/22 19:00 09/01/22 19:00 Temperature Pulse Rate 112 H Respiratory Rate 24 Blood Pressure 130/55 O2 Sat by Pulse Oximetry 100 Oxygen Delivery Method Nasal Cannula Oxygen Flow Rate 3 FIO2% 09/01/22 20:00 09/01/22 20:00 09/01/22 21:00 Temperature 97.5 F L Pulse Rate 112 H Respiratory Rate 25 H Blood Pressure 123/58 111/52 O2 Sat by Pulse Oximetry 100 Oxygen Delivery Method Oxygen Flow Rate FIO2% 09/01/22 21:00 09/01/22 22:00 09/01/22 22:01 Temperature Pulse Rate 109 H 109 H Respiratory Rate 24 24 Blood Pressure 134/58 O2 Sat by Pulse Oximetry 100 100 Oxygen Delivery Method Oxygen Flow Rate FIO2% 09/01/22 23:00 09/01/22 23:01 09/02/22 00:00 Temperature 97.7 F Pulse Rate 110 H Respiratory Rate 24 Blood Pressure 116/58 98/54 O2 Sat by Pulse Oximetry 100 Oxygen Delivery Method Oxygen Flow Rate FIO2% 09/02/22 00:00 09/02/22 01:00 09/02/22 01:00 Temperature Pulse Rate 103 H 103 H Respiratory Rate 31 H 32 H Blood Pressure 90/53 O2 Sat by Pulse Oximetry 100 100 Oxygen Delivery Method Oxygen Flow Rate FIO2% 09/02/22 02:00 09/02/22 02:00 09/01/22 21:00 Temperature Pulse Rate 101 H Respiratory Rate 29 H Blood Pressure 79/46 O2 Sat by Pulse Oximetry 100 Oxygen Delivery Method Nasal Cannula Oxygen Flow Rate 3 FIO2% 32 09/02/22 02:15 09/02/22 02:15 09/02/22 02:31 Temperature Pulse Rate 101 H 101 H Respiratory Rate 26 H 25 H Blood Pressure 86/50 O2 Sat by Pulse Oximetry 100 100 Oxygen Delivery Method Oxygen Flow Rate FIO2% 09/02/22 02:31 09/02/22 02:45 09/02/22 02:45 Temperature Pulse Rate 101 H Respiratory Rate 29 H Blood Pressure 80/53 77/52 O2 Sat by Pulse Oximetry 100 Oxygen Delivery Method Oxygen Flow Rate FIO2% 09/02/22 03:00 09/02/22 03:00 09/02/22 03:31 Temperature Pulse Rate 100 H 100 H Respiratory Rate 29 H 28 H Blood Pressure 80/48 O2 Sat by Pulse Oximetry 100 100 Oxygen Delivery Method Oxygen Flow Rate FIO2% 09/02/22 03:31 09/02/22 04:00 09/02/22 04:00 Temperature 97.9 F Pulse Rate 100 H Respiratory Rate 28 H Blood Pressure 86/50 75/51 O2 Sat by Pulse Oximetry 100 Oxygen Delivery Method Oxygen Flow Rate FIO2% 09/02/22 04:30 09/02/22 04:30 09/02/22 04:45 Temperature Pulse Rate 100 H 100 H Respiratory Rate 25 H 25 H Blood Pressure 103/70 O2 Sat by Pulse Oximetry 100 100 Oxygen Delivery Method Oxygen Flow Rate FIO2% 09/02/22 04:45 09/02/22 05:00 09/02/22 05:00 Temperature Pulse Rate 101 H Respiratory Rate 25 H Blood Pressure 98/65 89/65 O2 Sat by Pulse Oximetry 100 Oxygen Delivery Method Oxygen Flow Rate FIO2% 09/02/22 05:17 09/02/22 05:17 09/02/22 05:31 Temperature Pulse Rate 102 H 102 H Respiratory Rate 26 H 29 H Blood Pressure 129/72 O2 Sat by Pulse Oximetry 100 100 Oxygen Delivery Method Oxygen Flow Rate FIO2% 09/02/22 05:31 09/02/22 05:45 09/02/22 05:45 Temperature Pulse Rate 103 H Respiratory Rate 26 H Blood Pressure 105/55 101/56 O2 Sat by Pulse Oximetry 100 Oxygen Delivery Method Oxygen Flow Rate FIO2% 09/02/22 06:00 09/02/22 06:06 09/02/22 07:00 Temperature 97.3 F L Pulse Rate 102 H 101 H Respiratory Rate 27 H 25 H Blood Pressure 110/58 99/56 O2 Sat by Pulse Oximetry 99 100 Oxygen Delivery Method Nasal Cannula Oxygen Flow Rate 3 FIO2% 09/02/22 07:00 09/02/22 08:00 09/02/22 09:00 Temperature Pulse Rate 101 H 101 H Respiratory Rate 27 H 26 H Blood Pressure 125/43 88/44 O2 Sat by Pulse Oximetry 100 100 Oxygen Delivery Method Nasal Cannula Nasal Cannula Nasal Cannula Oxygen Flow Rate 3 3 3 FIO2% 09/02/22 09:21 09/02/22 10:00 09/02/22 11:00 Temperature Pulse Rate 102 H 103 H Respiratory Rate 27 H 26 H Blood Pressure 105/77 107/67 O2 Sat by Pulse Oximetry 100 100 Oxygen Delivery Method Nasal Cannula Nasal Cannula Nasal Cannula Oxygen Flow Rate 2 3 3 FIO2% 28 09/02/22 12:00 09/02/22 13:00 09/02/22 14:00 Temperature 97.9 F Pulse Rate 106 H 106 H 108 H Respiratory Rate 26 H 25 H 26 H Blood Pressure 100/56 101/53 88/49 O2 Sat by Pulse Oximetry 100 100 100 Oxygen Delivery Method Nasal Cannula Nasal Cannula Nasal Cannula Oxygen Flow Rate 3 3 3 FIO2% 09/02/22 15:00 09/02/22 16:00 09/02/22 17:00 Temperature Pulse Rate 110 H 106 H 108 H Respiratory Rate 28 H 24 23 Blood Pressure 114/76 96/50 97/48 O2 Sat by Pulse Oximetry 100 100 100 Oxygen Delivery Method Nasal Cannula Nasal Cannula Nasal Cannula Oxygen Flow Rate 3 3 3 FIO2% 09/02/22 18:00 09/02/22 18:53 09/02/22 18:00 Temperature Pulse Rate 109 H 109 H Respiratory Rate 24 25 H Blood Pressure 98/52 O2 Sat by Pulse Oximetry 100 100 Oxygen Delivery Method Nasal Cannula Nasal Cannula Oxygen Flow Rate 3 3 FIO2% 09/02/22 18:05 09/02/22 19:00 09/02/22 19:01 Temperature Pulse Rate 109 H 109 H Respiratory Rate 29 H 35 H Blood Pressure 98/52 O2 Sat by Pulse Oximetry 100 100 Oxygen Delivery Method Oxygen Flow Rate FIO2% 09/02/22 19:01 09/02/22 19:09 09/02/22 19:09 Temperature Pulse Rate 111 H Respiratory Rate 26 H Blood Pressure 73/35 97/67 O2 Sat by Pulse Oximetry 100 Oxygen Delivery Method Oxygen Flow Rate FIO2% 09/02/22 20:00 09/02/22 20:04 09/02/22 20:31 Temperature 97.5 F L Pulse Rate 111 H 110 H Respiratory Rate 30 H 25 H Blood Pressure 118/77 O2 Sat by Pulse Oximetry 100 100 Oxygen Delivery Method Oxygen Flow Rate FIO2% 09/02/22 20:31 09/02/22 21:00 09/02/22 21:07 Temperature Pulse Rate 111 H Respiratory Rate 25 H Blood Pressure 82/50 105/63 O2 Sat by Pulse Oximetry 100 Oxygen Delivery Method Oxygen Flow Rate FIO2% 09/02/22 21:16 09/02/22 21:07 09/02/22 21:07 Temperature Pulse Rate 111 H Respiratory Rate 25 H Blood Pressure 105/63 O2 Sat by Pulse Oximetry 100 Oxygen Delivery Method Nasal Cannula Oxygen Flow Rate 3 FIO2% 32 09/02/22 21:33 09/02/22 21:33 09/02/22 22:00 Temperature Pulse Rate 111 H 112 H Respiratory Rate 26 H 26 H Blood Pressure 120/82 O2 Sat by Pulse Oximetry 100 100 Oxygen Delivery Method Oxygen Flow Rate FIO2% 09/02/22 22:03 09/02/22 22:34 09/02/22 22:34 Temperature Pulse Rate 111 H Respiratory Rate 28 H Blood Pressure 106/71 125/91 O2 Sat by Pulse Oximetry 100 Oxygen Delivery Method Oxygen Flow Rate FIO2% 09/02/22 23:00 09/02/22 23:05 09/02/22 23:05 Temperature Pulse Rate 114 H 113 H Respiratory Rate 26 H 24 Blood Pressure 123/83 O2 Sat by Pulse Oximetry 100 100 Oxygen Delivery Method Oxygen Flow Rate FIO2% 09/02/22 23:31 09/02/22 23:31 09/03/22 00:00 Temperature Pulse Rate 110 H 109 H Respiratory Rate 26 H 25 H Blood Pressure 92/56 O2 Sat by Pulse Oximetry 100 100 Oxygen Delivery Method Oxygen Flow Rate FIO2% 09/03/22 00:01 09/03/22 00:26 09/03/22 00:26 Temperature 97.5 F L Pulse Rate 110 H Respiratory Rate 24 Blood Pressure 74/48 106/57 O2 Sat by Pulse Oximetry 100 Oxygen Delivery Method Oxygen Flow Rate FIO2% 09/03/22 00:43 09/03/22 00:43 09/03/22 01:03 Temperature Pulse Rate 113 H Respiratory Rate 25 H Blood Pressure 109/56 107/53 O2 Sat by Pulse Oximetry 99 Oxygen Delivery Method Oxygen Flow Rate FIO2% 09/03/22 01:03 09/03/22 01:05 09/03/22 01:03 Temperature Pulse Rate 112 H Respiratory Rate 22 Blood Pressure 107/53 O2 Sat by Pulse Oximetry 100 Oxygen Delivery Method Nasal Cannula Oxygen Flow Rate FIO2% 09/03/22 01:03 09/03/22 01:33 09/03/22 01:33 Temperature Pulse Rate 112 H 114 H Respiratory Rate 22 25 H Blood Pressure 113/55 O2 Sat by Pulse Oximetry 100 100 Oxygen Delivery Method Oxygen Flow Rate FIO2% 09/03/22 02:00 09/03/22 02:03 09/03/22 02:03 Temperature Pulse Rate 114 H Respiratory Rate 24 Blood Pressure 103/62 103/62 O2 Sat by Pulse Oximetry 100 Oxygen Delivery Method Oxygen Flow Rate FIO2% 09/03/22 02:03 09/03/22 02:33 09/03/22 02:33 Temperature Pulse Rate 113 H 112 H Respiratory Rate 24 23 Blood Pressure 109/55 O2 Sat by Pulse Oximetry 100 100 Oxygen Delivery Method Oxygen Flow Rate FIO2% 09/03/22 03:03 09/03/22 03:03 09/03/22 03:03 Temperature Pulse Rate 112 H Respiratory Rate 21 Blood Pressure 107/54 107/54 O2 Sat by Pulse Oximetry 100 Oxygen Delivery Method Oxygen Flow Rate FIO2% 09/03/22 04:03 09/03/22 04:03 09/03/22 05:00 Temperature 97.5 F L Pulse Rate 111 H 110 H Respiratory Rate 22 22 Blood Pressure 112/56 O2 Sat by Pulse Oximetry 100 99 Oxygen Delivery Method Oxygen Flow Rate FIO2% 09/03/22 05:23 09/03/22 05:31 09/03/22 05:31 Temperature Pulse Rate 110 H Respiratory Rate 29 H Blood Pressure 89/52 110/55 O2 Sat by Pulse Oximetry 100 Oxygen Delivery Method Oxygen Flow Rate FIO2% 09/03/22 06:00 09/03/22 06:11 09/03/22 06:11 Temperature Pulse Rate 111 H 111 H Respiratory Rate 24 23 Blood Pressure 123/71 O2 Sat by Pulse Oximetry 100 100 Oxygen Delivery Method Oxygen Flow Rate FIO2% 09/03/22 06:40 09/03/22 06:40 09/03/22 07:00 Temperature Pulse Rate 111 H Respiratory Rate 23 Blood Pressure 86/53 O2 Sat by Pulse Oximetry 100 Oxygen Delivery Method Nasal Cannula Oxygen Flow Rate 3 FIO2% 09/03/22 07:00 09/03/22 07:03 09/03/22 07:03 Temperature Pulse Rate 111 H 111 H Respiratory Rate 25 H 25 H Blood Pressure 117/74 O2 Sat by Pulse Oximetry 100 99 Oxygen Delivery Method Oxygen Flow Rate FIO2% 09/03/22 07:31 09/03/22 07:31 09/03/22 08:00 Temperature Pulse Rate 109 H 109 H Respiratory Rate 23 25 H Blood Pressure 64/41 O2 Sat by Pulse Oximetry 100 99 Oxygen Delivery Method Oxygen Flow Rate FIO2% 09/03/22 08:01 09/03/22 08:01 09/03/22 08:06 Temperature Pulse Rate 109 H 113 H Respiratory Rate 21 28 H Blood Pressure 37/11 O2 Sat by Pulse Oximetry 100 89 L Oxygen Delivery Method Oxygen Flow Rate FIO2% 09/03/22 08:06 09/03/22 08:09 09/03/22 08:09 Temperature Pulse Rate 111 H Respiratory Rate 29 H Blood Pressure 120/76 133/55 O2 Sat by Pulse Oximetry Oxygen Delivery Method Oxygen Flow Rate FIO2% 09/03/22 08:25 09/03/22 08:25 09/03/22 08:30 Temperature Pulse Rate 114 H 114 H Respiratory Rate 29 H 29 H Blood Pressure 127/74 O2 Sat by Pulse Oximetry 75 L 74 L Oxygen Delivery Method Oxygen Flow Rate FIO2% 09/03/22 08:30 09/03/22 08:52 09/03/22 08:52 Temperature Pulse Rate 113 H Respiratory Rate 32 H Blood Pressure 161/81 143/69 O2 Sat by Pulse Oximetry 100 Oxygen Delivery Method Oxygen Flow Rate FIO2% 09/03/22 09:00 09/03/22 09:00 09/03/22 09:15 Temperature Pulse Rate 115 H Respiratory Rate 27 H Blood Pressure 125/87 O2 Sat by Pulse Oximetry 99 Oxygen Delivery Method Nasal Cannula Oxygen Flow Rate 3 FIO2% 32 09/03/22 10:58 09/03/22 09:30 09/03/22 09:30 Temperature Pulse Rate 115 H Respiratory Rate 27 H 37 H Blood Pressure 112/75 O2 Sat by Pulse Oximetry 99 Oxygen Delivery Method Oxygen Flow Rate FIO2% 09/03/22 09:30 09/03/22 10:00 09/03/22 10:00 Temperature Pulse Rate 113 H Respiratory Rate 28 H Blood Pressure 112/75 95/63 O2 Sat by Pulse Oximetry 98 Oxygen Delivery Method Oxygen Flow Rate FIO2% 09/03/22 10:39 09/03/22 10:39 09/03/22 11:00 Temperature Pulse Rate 110 H 111 H Respiratory Rate 26 H 25 H Blood Pressure 123/76 O2 Sat by Pulse Oximetry 100 100 Oxygen Delivery Method Oxygen Flow Rate FIO2% 09/03/22 11:01 09/03/22 11:01 09/03/22 11:31 Temperature Pulse Rate 111 H Respiratory Rate 27 H Blood Pressure 135/51 133/51 O2 Sat by Pulse Oximetry 100 Oxygen Delivery Method Oxygen Flow Rate FIO2% 09/03/22 11:31 09/03/22 11:28 09/03/22 12:00 Temperature Pulse Rate 105 H 101 H Respiratory Rate 24 26 H 26 H Blood Pressure O2 Sat by Pulse Oximetry 100 97 Oxygen Delivery Method Oxygen Flow Rate FIO2% 09/03/22 12:01 09/03/22 12:01 09/03/22 12:31 Temperature 97.6 F Pulse Rate 101 H Respiratory Rate 28 H Blood Pressure 78/48 80/35 O2 Sat by Pulse Oximetry 97 Oxygen Delivery Method Oxygen Flow Rate FIO2% 09/03/22 12:31 09/03/22 13:00 09/03/22 13:01 Temperature Pulse Rate 102 H 101 H Respiratory Rate 30 H 25 H Blood Pressure 45/10 O2 Sat by Pulse Oximetry 96 73 L Oxygen Delivery Method Oxygen Flow Rate FIO2% 09/03/22 13:01 09/03/22 14:00 Temperature Pulse Rate 101 H 0 L Respiratory Rate 23 0 L Blood Pressure O2 Sat by Pulse Oximetry 71 L Oxygen Delivery Method Oxygen Flow Rate FIO2% Labs: Laboratory Last Values WBC 34.0 X10^3/uL (3.6-10.0) H* D 09/03/22 04:08 RBC 2.19 X10^6/uL (3.5-5.4) L 09/03/22 04:08 Hgb 8.0 g/dL (12.0-16.0) L 09/03/22 04:08 Hct 23.8 % (36.0-47.0) L 09/03/22 04:08 MCV 108.5 fL (80.0-100.0) H 09/03/22 04:08 MCH 36.3 pg (27.0-34.0) H 09/03/22 04:08 MCHC 33.5 g/dL (33.0-35.0) 09/03/22 04:08 RDW 22.9 % (11.6-16.5) H 09/03/22 04:08 Plt Count 248 X10^3/uL (150.0-450.0) 09/03/22 04:08 Plt Count Comment Adequate (ADEQUATE) 09/03/22 04:08 MPV 8.9 fL (7.4-11.0) 09/03/22 04:08 Neut % (Auto) 95.2 % (42.0-75.0) H 09/03/22 04:08 Lymph % (Auto) 1.5 % (21.0-51.0) L 09/03/22 04:08 [place] % (Auto) 3.0 % (0.0-13.0) 09/03/22 04:08 Eos % (Auto) 0.2 % (0.9-2.9) L 09/03/22 04:08 Baso % (Auto) 0.1 % (0.2-1.0) L 09/03/22 04:08 Neut # (Auto) 32.4 x10^3/uL (2.2-4.8) H 09/03/22 04:08 Lymph # (Auto) 0.5 X10^3/uL (1.3-2.9) L 09/03/22 04:08 Dent # (Auto) 1.0 x10^3/uL (0.3-0.8) H 09/03/22 04:08 Eos # (Auto) 0.1 x10^3/uL (0.0-0.2) 09/03/22 04:08 Baso # (Auto) 0.1 X10^3/uL (0.0-0.1) 09/03/22 04:08 Absolute Nucleated RBC 0.2 /100WBC 09/03/22 04:08 Total Counted 100 09/03/22 04:08 Neutrophils % (Manual) 84 % (39-76) H 09/03/22 04:08 Band Neutrophils % 7 % (0-10) 09/03/22 04:08 Lymphocytes % (Manual) 4 % (13-43) L 09/03/22 04:08 Monocytes % (Manual) 2 % (4-9) L 09/03/22 04:08 Metamyelocytes % 2 09/03/22 04:08 Myelocytes % 1 09/03/22 04:08 Giant Platelets Few 08/28/22 04:05 Plt Morphology Comment Normal (NORMAL) 09/03/22 04:08 RBC Morphology Abnormal (NORMAL) A 09/03/22 04:08 Dimorphic RBCs Slight 08/29/22 09:12 Anisocytosis 2+ A 09/03/22 04:08 Microcytosis 1+ A 08/31/22 04:05 Macrocytosis 1+ A 09/03/22 04:08 Target Cells Present 09/02/22 04:13 Stomatocytes Present 09/03/22 04:08 [place] Cells Present 09/02/22 04:13 Schistocytes Present 09/03/22 04:08 PT 12.2 SECONDS (11.8-14.3) 08/22/22 15:59 INR Target Range - 08/22/22 15:59 INR 0.92 (0.8-1.3) 08/22/22 15:59 APTT 68.9 SECONDS (22.9-36.5) H 08/27/22 05:00 PTT Comment - 08/27/22 05:00 Sample Site Lb 09/03/22 08:20 ABG pH 7.170 (7.35-7.45) L* 09/03/22 08:20 ABG pCO2 49.0 mmHg (35.0-45.0) H 09/03/22 08:20 ABG pO2 74.0 mmHg (80.0-100.0) L 09/03/22 08:20 ABG HCO3 17.9 mmol/L (22-26) L* 09/03/22 08:20 ABG O2 Saturation 90.0 % (90-100) 09/03/22 08:20 ABG Base Excess -10.5 mmol/L (-2.0-2.0) L 09/03/22 08:20 Juan Test Na 09/03/22 08:20 A-a Gradient 93.0 mmHg 09/03/22 08:20 FiO2 32.0 09/03/22 08:20 Blood Gas Comments Sita well ej/gmb 09/03/22 08:20 Sodium 138 mmol/L (136-145) 09/03/22 04:08 Corrected Sodium 140 mmol/L (136-145) 09/03/22 04:08 Potassium 3.4 mmol/L (3.5-5.1) L 09/03/22 04:08 Chloride 105 mmol/L (98-107) 09/03/22 04:08 Carbon Dioxide 23.5 mmol/L (21-32) 09/03/22 04:08 BUN 30 mg/dL (7-18) H 09/03/22 04:08 Creatinine 2.45 mg/dL (0.55-1.02) H 09/03/22 04:08 Est GFR (MDRD) Af Amer 25 (>60) L 09/03/22 04:08 Est GFR (MDRD) Non-Af 21 (>60) L 09/03/22 04:08 Glucose 194 mg/dL (65-99) H 09/03/22 04:08 POC Glucose (mg/dL) 275 mg/dL (65-99) H 09/03/22 09:59 Calcium 6.2 mg/dL (8.5-10.1) L 09/03/22 04:08 Corrected Calcium 8.3 mg/dL (8.5-10.1) L 09/03/22 04:08 Magnesium 2.8 mg/dL (2.0-2.9) 08/23/22 05:09 Total Bilirubin 0.60 mg/dL (0.2-1.0) 09/03/22 04:08 AST 61 Units/L (15-37) H 09/03/22 04:08 ALT 21 Units/L (12-78) 09/03/22 04:08 Alkaline Phosphatase 185 Units/L (46-116) H 09/03/22 04:08 B-Natriuretic Peptide 878 pg/mL (0-79) H* 09/02/22 04:13 Total Protein 4.2 g/dL (6.4-8.2) L 09/03/22 04:08 Albumin 1.4 g/dL (3.4-5.0) L 09/03/22 04:08 Globulin 2.8 g/dL (2.5-4.5) 09/03/22 04:08 Albumin/Globulin Ratio 0.5 Ratio (1.1-2.1) L 09/03/22 04:08 Blood Type A POSITIVE 08/27/22 00:15 Antibody Screen Negative 08/27/22 00:15 Crossmatch See Detail 08/27/22 00:15 Reason For Visit: INFRARENAL AORTIC STENOSIS Discharge Date Discharge Date: 09/03/22 Discharge Diagnosis All Active Problems (Updated 09/03/22 @ 18:11 by Jesus Chauhan) Aortoiliac occlusive disease (Acute) Atherosclerosis of [place] arteries of extremities with rest pain, left leg (Acute) Atherosclerosis of [place] arteries of extremities with rest pain, right leg (Acute) Hypertension (Acute) Alcohol abuse (Acute) Tobacco abuse (Acute) Plan of Treatment: See above Discharge Medications Discharge Medications: No Known Allergies Allergy (Verified 08/22/22 15:35) CONTINUE taking the following medications folic acid 1 mg tablet 1 tab PO QDAY 08/22/22 [History] gabapentin 300 mg capsule 1 cap PO QPM 08/22/22 [History] metoprolol succinate 50 mg tablet,extended release 24 hr 1 tab PO QPM 08/22/22 [History] pregabalin 50 mg capsule 1 cap PO BID 08/22/22 [History] Discharge Disposition Assessment: Discharge Plan Discharge Plan Hospital Course: This patient is a 72 year old female who presented to the office on the day of admission, August 22 ,with severe rest pain of both lower extremities, cyanosis of both legs and no palpable femoral pulses. 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 Because of her small aorta and the extensive occlusions she was not deemed a good candidate for endovascular repair . Also with significant history of tobacco abuse with history of alcohol abuse. She underwent a L exiscan stress test which showed an ejection fraction of 68% with no reversible ischemia. Although we prophylactically treated her to prevent delirium tremens she became very anxious and the surgery which was originally scheduled for the 24 of August was canceled. She did well over the weekend and her surgery was scheduled for August 27 when she underwent open aorto-bifemoral bypass with endarterectomy of the right common femoral artery . She did well with the surgery itself . Post procedure she remained intubated overnight was extubated the next day without difficulty. She required blood pressure support with Levophed and significant amount of fluid resuscitation and had poor urine output ,but on August 29 she began to make good ,consistent urine consistent with recovering kidneys. We were able to wean the Levophed off. Our plan was to get her through this and then selectively repair each lower extremity. Unfortunately she stopped making urine around September 01. This was despite fluid administration, Lasix and renal dose dopamine. She remained very weak .She developed bilateral pleural effusions but maintained 100% saturation on 3 liters of oxygen. I was in the process of arranging for Nephrology consultation and possible transfer for dialysis. Patient had had very poor intake . PEG tube placement was discussed .She developed an elevated white blood cell count and was started on IV antibiotics . CT of the abdomen showed no evidence of abscess. The family decided to make her a [id number] and did withdraw care and she was pronounced on the afternoon of September 03. All questions have been answered in person by myself with the and the family at the bedside. Patient Disposition: 20 Condition: Stable Health Concerns: Post Hospitalization: new medications and changes needed to prevent readmission or further decline. Pt educated and given instructions on all concerns. Care Plan Goals: Problem: Pain/Alteration in Comfort Goal: Improve/ Resolve Pain; Achieve Pain Tolerance Instructions: Take pain medications as prescribed. Contact your primary care provider if your pain is unrelieved or worsens. Follow up with primary care provider as directed. Plan of Treatment: See above Assessment: Prescription drug monitoring program results: PDMP was not reviewed Prescriptions: Discontinued pregabalin 50 mg capsule 1 cap PO BID metoprolol succinate 50 mg tablet extended release 24 hr 1 tab PO QPM gabapentin 300 mg capsule 1 cap PO QPM folic acid 1 mg tablet 1 tab PO QDAY Orders to Discharge Patient Discharge Orders: Discharge (Routine); Ordered 09/03/22 Ordered By: Jesus Chauhan Follow ups/Referrals Follow ups/Referrals: Jesus Chauhan [Primary Care Provider] - 1 WEEK Instructions Instructions: Health Risks of Smoking, Blood Transfusion, Adult, Care After, Bboa-di-Qecz, Preventing Problems After Surgery, Steps to Quit Smoking, How to Prevent Constipation After Surgery Stand Alone Forms: Excuse From Work or School
--- NOTE | 2022-09-06 18:31 | DR.UPDATE ---
H&P UPDATE Review Yes Any changes to H&P?: No Patient was examined?: Yes
--- NOTE | 2022-09-06 21:40 | DR.OPNOTE ---
OP NOTE Pre-Op Diagnosis: Aortoiliac occlusive disease Post-Op Diagnosis: same Procedure Date Date Of Procedure: 08/27/22 Procedure: PROCEDURE: AORTO-BIFEMORAL BYPASS NARRATIVE : The patient was taken to the operative suite and placed in the supine position. General endotracheal anesthesia induced. The abdomen and both groins were prepped and draped in sterile fashion. Time out for the procedure carried out . Vertical incision was made in the right groin with a number 15 blade knife and sharp dissection carried down to the femoral artery. Right common femoral artery dissected free and vessel loops placed around the common femoral artery, profunda femoris artery the superficial femoral artery. Incision made in the left groin and the left femoral artery dissected free and vessel loops placed around the common femoral artery, the superficial femoral artery take off and the profunda femoris artery . The right common femoral artery was densely calcific. At this point the mid line abdominal incision was made of the abdomen with a # 10 knife. The midline fascia opened with electrocautery and the peritoneum opened with Metzenbaum scissors . Mid line incision completed with electrocautery. A [place] retractor was placed. The in ferior mesenteric vein was divided between clamps and tied with 2-0 silk ties . Dissection carried down to the aorta and extended up towards the renal arteries. The ligament of Treitz was retracted cephalad and to the patient's right. Patient had significantly calcific aorta and there was a soft spot just below the renal arteries . The renal vein of the left kidney crossed the area of dissection therefore it was divided between clamps and tied with 2- 0 silk suture ligatures . Dissection carried behind the aorta just below the renal arteries and open Statinsky clamp placed here. Patient given 5000 units of IV heparin. After three minutes the aorta was clamped below the renal arteries . The infra renal aorta was clamped with an angled Debakey clamp. The proximal aorta was open with a # 11 knife blade and Pott's scissors and gross old thrombus removed from this portion of aorta. This was irrigated free with saline. An 18 mm by 90 mm bifurcated Dacron graft had been selected and was fashioned for anastomosis and anastomosis carried out between the aorta and the graft end to side with running 3-0 Prolene suture. Approaching the apex of the incision there was some bleeding therefore we had to clamp for approximately one minute at the renal arteries but still below them and this closed with a figure of 8 suture with 3-0 Prolene . There was no further the bleeding from this anastomosis. Clamp opened and the aortic graft filled . Both limbs of the graft flushed with blood and heparin. Both femoral limbs tunneled from the abdomen to each groin and placed in the femoral incisions. The right femoral artery was clamped proximally with an angled Debakey clamp and the other vessels occluded with vessel loops The right femoral artery opened with a number 11 knife blade and endarterectomy carried out with [place] elevator and Boyd scissors and plaque removed. The limb of the graft fashioned for anastomosis to the right femoral artery and carried out using running 5-0 Prolene suture . The clamp removed and the artery opened up and there was no bleeding from this anastomosis. On the left side, the femoral artery clamped proximally with a Debakey clamp and the other vessels occluded with the vessel loops. The left femoral artery opened with # 11 knife blade and Pott's scissors . Graft fashioned for anastomosis and the anastomosis performed with 5-0 Prolene suture . This limb opened up and there was no further bleeding from this anastomosis . Total blood loss was listed as 500 cc but is less than that. At this point the patient had good doppler signals in both groins. The abdomen was inspected and irrigated . The peritoneum closed over top of the graft with running 3-0 Vicryl suture. There was no bleeding in the abdomen The fascia of the abdominal incision closed with running looped 0-monofilament suture . Each groin closed in 2 layers of running 3-0 Vicryl suture and the skin closed with skin nicholas. Aqua Cell dressings applied to all incisions . The patient remained stable during the entire case. At the end of the case the patient was in good condition and was transferred to the ICU still intubated and on low dose Levophed. Type of Anesthesia: General Anesthetic w/ETT Findings: occluded aorta , densely calcific, with flow noted just below the renal arteries , occluded and densely calcific iliac arteries Type of Fluids Used:: Normal Saline (2000 cc), Lactated Ringers (500 cc) and Blood and Blood Products (1 unit PRBCs ) Total Amount of Fluid Infused:: 2800 cc, 1 unit PRBCS EBL: 500 cc Complications:: none Needle/Sponge Count:: correct Disposition/Condition: Pt. tolerated procedure without difficulty. Remained intubated and taken to ICU in stable condition.
--- NOTE | 2022-09-07 14:28 | DR.OPNOTE ---
OP NOTE Pre-Op Diagnosis: s/p aortobifemoral bypass, lack of IV access Post-Op Diagnosis: same Procedure Date Date Of Procedure: 08/30/22 Procedure: PROCEDURE: PLACE LEFT SUBCLAVIAN VEIN TRIPLE LUMEN CATHETER NARRATIVE: The patient was in the ICU and placed in Trendelenburg position. The left neck and left chest prepped and draped in sterile fashion. The skin underlying the left clavicle infiltrated with 1% Xylocaine . 16 gauge needle used to puncture the left subclavian vein and aspirate blood. 0.035 inch guide wire placed into the vein. Incision made over this guidewire at the skin edge with a number 11 knife blade and a dilator placed over the guide wire into the left subclavian vein. The guide wire removed and replaced with a triple Lumen catheter which was placed to length. The wire removed. All ports aspirated of blood and flushed with heparinized saline. Catheter secured to the skin with 2- 0 silk interrupted sutures. Antibiotic disc placed around the entrance of the catheter to the skin. Tegaderm dressing applied .Post-procedure chest x-ray showed no pneumothorax with good placement of this catheter into the right atrium. Type of Anesthesia: Local (1 % Xylocaine) EBL: minimal Complications:: none, post procedure CXR shows good placement with no pneumothorax Disposition/Condition: Pt. tolerated procedure without difficulty. Extubated in the OR and taken to PACU in stable condition.
== END 2022-09-03 13:45 | disposition expired | DRG 269 ==
LOC: ICU 14:48
PROVIDERS: ADMIT Surgery; ATTEND Surgery
DX: Z72.0 Tobacco use; R79.1 Abnormal coagulation profile; E78.5 Hyperlipidemia, unspecified; J44.9 Chronic obstructive pulmonary disease, unspecified; I74.09 Other arterial embolism and thrombosis of abdominal aorta; J90 Pleural effusion, not elsewhere classified; Z66 Do not resuscitate; I10 Essential (primary) hypertension; R06.02 Shortness of breath; I75.89 Atheroembolism of other site; I70.223 Atherosclerosis of native arteries of extremities with rest pain, bilateral legs; I46.9 Cardiac arrest, cause unspecified; N17.8 Other acute kidney failure; I71.43 Infrarenal abdominal aortic aneurysm, without rupture